=== PATIENT | male | born 1955 | race Caucasian/White ===

== ENCOUNTER 2016-05-24 15:11 | Observation (INO) ==
--- NOTE | 2016-05-24 15:44 | Emergency Department Note ---
Disposition Clinical Impression: CHF exacerbation Qualifiers: Congestive heart failure type: unspecified congestive heart failure type Qualified Code(s): I50.9 - Heart failure, unspecified CKD (chronic kidney disease) Qualifiers: Chronic kidney disease stage: stage 4 (severe) Qualified Code(s): N18.4 - Chronic kidney disease, stage 4 (severe) Disposition: Admitted As Inpatient Condition: Good SOB HPI - General Chief Complaint: ED Shortness of Breath/Dyspnea Stated Complaint: Sent by Dr. Rubin for acute CHF Time Seen by Provider: 05/24/16 15:16 Source: patient, family Mode of arrival: private vehicle Limitations: no limitations Nursing Notes Reviewed: Yes Vital Signs Reviewed: Yes - History of Present Illness 61-year-old male history of CHF, COPD, CKD who presents to the ER with a chief complaint of shortness of breath. Patient reports that he was seen by his primary care provider on Saturday. At that time she increased his Lasix from 80 mg daily to 160 mg daily. Patient reports shortness of breath for the last few years but worsened over the last 10 days. He reports a recent weight gain of 30 pounds during this time. Patient reports some worsening dyspnea on exertion. He denies any orthopnea. States he has felt a little more swollen than usual. No chest pain. Patient had imaging performed today as an outpatient and was told to come to the ER. No other complaints. Pt Subjective Complaint: shortness of breath Onset (ago): day(s) (10) Context: other (History of congestive heart failure) Consistency/Duration: gradually worsening Improves with: rest Worsens with: exertion Known history of: congestive heart failure Associated symptoms: Reports: other (shortness of breath). Denies: chest pain, fever, cough, sputum production, lower extremity pain, nausea/vomiting Treatment prior to arrival: diuretics Cough present: No Sputum production: No Sputum Amount: None - Related Data Home oxygen amount: none Home Medications Medication Instructions Recorded Confirmed Allopurinol [Zyloprim] 100 mg PO QAM 11/29/15 05/24/16 Amitriptyline [Elavil] 50 - 100 mg PO HS 11/29/15 05/24/16 Calcitriol [Rocaltrol] 0.25 mcg PO BID 11/29/15 05/24/16 Docusate Sodium [Colace] 100 mg PO QID PRN 11/29/15 05/24/16 Eletriptan HBr [Relpax] 20 mg PO AD PRN 11/29/15 05/24/16 Ergocalciferol (VITAMIN D2) 2,000 unit PO DAILY 11/29/15 05/24/16 [Vitamin D2] FLUoxetine HCl [Prozac] 40 mg PO QAM 11/29/15 05/24/16 Ferrous Sulfate 325 mg PO BID 11/29/15 05/24/16 Folic Acid 1 mg PO DAILY 11/29/15 05/24/16 Furosemide [Lasix] 80 mg PO QAM 11/29/15 05/24/16 Omeprazole 20 mg PO QPM 11/29/15 05/24/16 Simvastatin [Zocor] 20 mg PO HS 11/29/15 05/24/16 OxyCODONE ER (12 HR) [OxyCONTIN] 20 mg PO Q8HR 12/01/15 05/24/16 Cyclobenzaprine HCl 2.5 - 5 mg PO TID PRN 05/24/16 05/24/16 Pregabalin [Lyrica] 25 mg PO TID 05/24/16 05/24/16 Allergies Allergy/AdvReac Type Severity Reaction Status Date / Time pregabalin [From Lyrica] AdvReac Confusion Verified 12/01/15 12:15 tamsulosin [From Flomax] AdvReac Dizziness Verified 12/01/15 12:15 All systems ED: reviewed and negative except as stated. Constitutional: Denies: fever Cardiovascular: Reports: dyspnea on exertion. Denies: chest pain, orthopnea Respiratory: Reports: dyspnea. Denies: cough, wheezes Gastrointestinal: Denies: abdominal pain, nausea, vomiting, diarrhea Musculoskeletal: Denies: back pain, neck pain Past Medical History - Past Medical History Attestation: Yes The following information was validated with the patient. Source: patient Medical history: Reports: CHF, COPD, coronary artery disease, DVT, diabetes, GERD, hyperlipidemia, hypertension, renal disease, thyroid disease, other Surgical history: Reports: other Psychiatric history: Reports: depression - Social History Smoking Status: Former smoker Smokeless Tobacco Status: No Alcohol use: Reports: none Drug use: Reports: none Physical Exam - General Limitations: no limitations General appearance: alert, in no apparent distress - Head Head exam: atraumatic, normocephalic, normal inspection - Eye Eye exam: Present: normal appearance, EOMI - ENT ENT exam: normal exam - Neck Neck exam: Present: normal inspection, full ROM - Chest Chest inspection: Present: normal inspection, symmetric chest wall rise - Respiratory Respiratory exam: Present: other (Crackles in the bases. Otherwise clear to auscultation bilaterally.) - Cardiovascular Cardiovascular exam: Present: regular rate, normal rhythm, normal heart sounds - Abdominal Exam Abdominal exam: Present: soft, Non-Tender. Absent: tenderness - Extremities Exam Extremities exam: Present: normal inspection, full ROM - Expanded Upper Extremity Exam Shoulder exam: Present: normal inspection, full ROM Arm exam: Present: normal inspection, full ROM Elbow exam: Present: normal inspection, full ROM Forearm/Wrist exam: Present: normal inspection, full ROM Hand exam: Present: normal inspection, full ROM - Expanded Lower Extremity Exam Hip/Pelvis exam: Present: normal inspection, full ROM Upper leg exam: Present: normal inspection, full ROM Knee exam: Present: normal inspection, full ROM Lower leg exam: Present: normal inspection, full ROM, swelling (Swelling to the bilateral lower extremities.) Ankle exam: Present: normal inspection, full ROM Foot/toe exam: Present: normal inspection, full ROM - Neurological Exam Neurological exam: Present: alert - Psychiatric Psychiatric exam: Present: normal affect, normal mood - Skin Skin exam: Present: warm, dry, intact, normal color Course Course Narrative: Patient seen and examined. Vital signs reviewed. We will review the chest x- ray performed today as an outpatient. EKG, basic labs ordered. Disposition pending. - Reevaluation(s) Reevaluation #1: I discussed the results of lab work and imaging with the patient. He is agreeable with staying in the hospital and receiving IV medications. Vital Signs Temperature 97.5 F L 05/24/16 15:12 Pulse Rate 71 05/24/16 15:12 Respiratory Rate 20 05/24/16 15:12 Blood Pressure 175/74 05/24/16 15:12 O2 Sat by Pulse Oximetry 94 L 05/24/16 15:12 Temperature 97.5 F L 05/25/16 07:50 Pulse Rate 54 05/25/16 07:50 Respiratory Rate 18 05/25/16 07:50 Blood Pressure 126/74 05/25/16 07:50 O2 Sat by Pulse Oximetry 99 05/25/16 07:50 Oxygen Delivery Oxygen Delivery Room Air,Nasal Cannula Shortness of Breath/Dyspnea - MDM Narrative Medical decision making narrative: 61-year-old male presents to the ER due to shortness of breath and recent weight gain. Patient attempted to be managed outpatient with increasing his Lasix over the last 3 days. He had a chest x-ray as an outpatient today showing ulnar congestion and a right pleural effusion. He reports a 30 pound weight gain in this time. Does have a history of chronic kidney disease followed with nephrology. EKG here is a junctional rhythm unchanged from previous. Renal function is stable. Patient given 40 mg of Lasix IV here and admitted to the hospitalist service. - Lab Data Lab results reviewed: Yes I reviewed the patient's lab results. Result diagrams: 05/25/16 04:37 05/25/16 04:37 Lab Results 05/24/16 05/24/16 05/24/16 Range/Units 15:31 15:31 15:31 WBC 4.0 L (4.3-11.1) K/mcL RBC 2.92 L (4.19-5.50) M/mcL Hgb 8.6 L (12.9-16.9) g/dL Hct 27.0 L (37.5-50.1) % MCV 92.5 (83.0-100.0) fL MCH 29.5 (28.0-33.3) pg MCHC 31.9 (31.6-35.5) g/dL RDW 14.8 H (11.5-14.5) % Plt Count 140 (140-400) K/mcL MPV 10.3 (9.4-12.4) fL Immature Gran % 0.5 (0-4) % Seg Neutrophils % 78.1 % Lymphocytes % 10.8 % Monocytes % 6.0 % Eosinophils % 4.3 % Basophils % 0.3 % Neutrophils # 3.1 (1.6-8.9) K/mcL Lymphocytes # 0.4 L (0.6-4.6) K/mcL Monocytes # 0.2 (0.0-1.3) K/mcL Eosinophils # 0.2 (0.0-0.6) K/mcL Basophils # 0.0 (0.0-0.2) K/mcL PT 15.1 H (9.4-12.1) Seconds INR 1.4 APTT 30.0 (26.0-36.0) Seconds Sodium (136-145) mEq/L Potassium (3.5-4.5) mEq/L Chloride (98-109) mEq/L Carbon Dioxide (19-29) mEq/L BUN (8-26) mg/dL Creatinine (0.72-1.25) mg/dL Est GFR ( Amer) (> 60) Est GFR (Non-Af Amer) (> 60) BUN/Creatinine Ratio (6-26) Glucose (70-99) mg/dL Calculated Osmolality (280-300) Calcium (8.6-10.8) mg/dL Troponin I (0-0.03) ng/mL B-Natriuretic Peptide 268 H (0-100) pg/mL 05/24/16 05/24/16 Range/Units 15:31 15:31 WBC (4.3-11.1) K/mcL RBC (4.19-5.50) M/mcL Hgb (12.9-16.9) g/dL Hct (37.5-50.1) % MCV (83.0-100.0) fL MCH (28.0-33.3) pg MCHC (31.6-35.5) g/dL RDW (11.5-14.5) % Plt Count (140-400) K/mcL MPV (9.4-12.4) fL Immature Gran % (0-4) % Seg Neutrophils % % Lymphocytes % % Monocytes % % Eosinophils % % Basophils % % Neutrophils # (1.6-8.9) K/mcL Lymphocytes # (0.6-4.6) K/mcL Monocytes # (0.0-1.3) K/mcL Eosinophils # (0.0-0.6) K/mcL Basophils # (0.0-0.2) K/mcL PT (9.4-12.1) Seconds INR APTT (26.0-36.0) Seconds Sodium 141 (136-145) mEq/L Potassium 3.8 (3.5-4.5) mEq/L Chloride 102 (98-109) mEq/L Carbon Dioxide 28 (19-29) mEq/L BUN 37 H (8-26) mg/dL Creatinine 3.35 H (0.72-1.25) mg/dL Est GFR ( Amer) 23 L (> 60) Est GFR (Non-Af Amer) 19 L (> 60) BUN/Creatinine Ratio 11 (6-26) Glucose 117 H (70-99) mg/dL Calculated Osmolality 302 H (280-300) Calcium 9.5 (8.6-10.8) mg/dL Troponin I 0.03 (0-0.03) ng/mL B-Natriuretic Peptide (0-100) pg/mL - Radiology Data Radiology results reviewed: Yes I reviewed the patient's radiology results. - EKG Data EKG attestation: Yes I reviewed and interpreted this EKG. EKG results narrative: EKG demonstrates junctional rhythm with a rate of 61 bpm. Normal axis. QRS duration 90 QTC 408. T-wave flattening in lead 3. No ST elevations or depressions. No acute ischemic findings. No significant changes from previous EKG dated 01/18/14. Amberly - Amberly Situation: Demographics, MOA Background: Presenting Complaint, Relevant PMH, Meds, & Allergies Assessment: Vital Signs, Course and respsone to treatment, Exam Concerns, Patient/Family Expectation, Pertinant Lab Results, Outstanding Labs Recommendation: Barrier(s) to disposition, Recommendation based on pending studies, treatments, or consults S.B.Brenda Report Given to: Dr. Irving Gaming Repor Time: 17:23
--- NOTE | 2016-05-24 15:49 | Emergency Department Note ---
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 61 yo male presents with concerns of SOB worsening over the past 10 days. + 30lb weight gain over the past few weeks. PCP recently increased his Lasix at home from 80 QD to 80 BID without significant improvement of symptoms. Pt denies missing his medications. +history of CKD, creatinine today is similar to previous levels. physical exam has crackles in bilateral bases, and +1 edema in the bilateral LE. Chest x-ray today shows increased pulmonary edema and a right pleural effusion. Patient reports decrease in his ability to ambulate due to dyspnea with exertion. Patient states that this has significantly worsened over the past week. Initial ECG shows a regular rate of 61, unable to identify obvious P waves however there is no evidence for irregularity or STEMI. Patient will be admitted to the hospital for his dyspnea which is likely secondary to acute congestive heart failure.
[2016-05-24 16:00] LABS: Basophils % 0.3 %; Eosinophils # 0.2 K/mcL (0.0-0.6); Eosinophils % 4.3 %; Hemoglobin 8.6 g/dL (12.9-16.9); Immature Granulocytes % 0.5 % (0-4); Lymphocytes # 0.4 K/mcL (0.6-4.6); Lymphocytes % 10.8 %; Mean Corpuscular HGB Conc 31.9 g/dL (31.6-35.5); Mean Corpuscular Hemoglobin 29.5 pg (28.0-33.3); Mean Corpuscular Volume 92.5 fL (83.0-100.0); Mean Platelet Volume 10.3 fL (9.4-12.4); Monocytes # 0.2 K/mcL (0.0-1.3); Neutrophils # 3.1 K/mcL (1.6-8.9); Platelet Count 140 K/mcL (140-400); Red Blood Count 2.92 M/mcL (4.19-5.50); Red Cell Distribution Width 14.8 % (11.5-14.5); Segmented Neutrophils % 78.1 %
[2016-05-24 16:06] LABS: INR 1.4; Prothrombin Time 15.1 Seconds (9.4-12.1)
[2016-05-24 16:12] LABS: Calcium 9.5 mg/dL (8.6-10.8); Potassium 3.8 mEq/L (3.5-4.5)
[2016-05-24] MEDS: Furosemide 40 MG/4 ML VIAL IVP ONE (17:03)
[2016-05-24] MEDS ORDERED: Naloxone 0.4 MG/ML INJ IVP PRN (19:59)
[2016-05-24] MEDS ORDERED: Ondansetron 4 MG/2 ML VIAL IVP PRN (19:59)
[2016-05-24] MEDS ORDERED: Acetaminophen 325 MG TABLET PO PRN (19:59)
[2016-05-24] MEDS ORDERED: Eletriptan Hbr [Relpax] 20 MG PO PRN (20:04)
[2016-05-24] MEDS: Pregabalin 25 MG CAPSULE PO SCH (22:00)
[2016-05-24] MEDS: Furosemide 40 MG/4 ML VIAL IVP SCH (22:00)
--- NOTE | 2016-05-24 22:03 | Internal Med History&Physical ---
Date of Encounter: 05/24/16 Time of Encounter: 21:59 Assessment and Plan (1) CHF (congestive heart failure) Current visit: No Status: Chronic With exacerbation. No Echo for review in system, but patient reports diastolic dysfuction - IV lasix BID - Careful I/Os - Fluid restricted diet - Carefully monitor renal function - TTE in AM Qualifiers: Congestive heart failure type: diastolic Congestive heart failure chronicity: chronic Qualified Code(s): I50.32 - Chronic diastolic (congestive ) heart failure (2) Anemia Current visit: Yes Status: Acute Chronic, hemoglobin stable - Monitor H&H Qualifiers: Anemia type: unspecified type Qualified Code(s): D64.9 - Anemia, unspecified (3) Hypertension Current visit: No Status: Chronic BP stable - Continue home meds Qualifiers: Hypertension type: essential hypertension Qualified Code(s): I10 - Essential (primary) hypertension (4) CKD (chronic kidney disease) Current visit: Yes Status: Acute Creatinine at baseline - Monitor creatinine daily with diuresis Qualifiers: Chronic kidney disease stage: stage 4 (severe) Qualified Code(s): N18.4 - Chronic kidney disease, stage 4 (severe) Internal Medicine - H&P: HPI Chief complaint: Shortness of breath, weight gain Admitted From: Emergency Dept Plans for Post Hospital Care: Home History of present illness: Mr. Castrejon is a 61 year old male with history of CHF (patient reports diastolic failure), CKD stage 4 (follow with Dr. Evans), BPH, JOANNA, DVT, who presented to the ER this evening with complaint of nearly 30 pound weight gain and shortness of breath. He has been following with his PCP and increased his lasix as prescribed with initially some improvement in his weight, but now it is worsening again. His abdomen has become more distended and his legs are edematous. He notices that he is more short of breath when laying flat or with bending over. His PCP sent him for CXR today and found significant pulmonary edema and instructed him to come to the ER. He was given 40 IV lasix in the ER and admitted. He complains of left flank pain, which he states is a chronic issue and has in the past been related to kidney stones. He denies chest pain, nausea, vomiting or diarrhea. Past Med Surg Social Fam HX - Past Medical History Medical history: CHF, COPD, coronary artery disease, DVT, diabetes, GERD, hyperlipidemia, hypertension, renal disease, thyroid disease, other Psychiatric history: depression - Past Surgical History Surgical History: other - Social History Smoking Status: Former smoker Smokeless Tobacco Status: No Alcohol use: none Drug use: none - Family History Father Hx Family Respiratory Disorders: Yes (COPD) Internal Medicine - H&P: Meds Allopurinol [Zyloprim] 100 mg PO QAM 11/29/15 [History] Amitriptyline [Elavil] 50 - 100 mg PO HS 11/29/15 [History] Calcitriol [Rocaltrol] 0.25 mcg PO BID 11/29/15 [History] Docusate Sodium [Colace] 100 mg PO QID PRN 11/29/15 [History] Eletriptan HBr [Relpax] 20 mg PO AD PRN 11/29/15 [History] Ergocalciferol (VITAMIN D2) [Vitamin D2] 2,000 unit PO DAILY 11/29/15 [History] FLUoxetine HCl [Prozac] 40 mg PO QAM 11/29/15 [History] Ferrous Sulfate 325 mg PO BID 11/29/15 [History] Folic Acid 1 mg PO DAILY 11/29/15 [History] Furosemide [Lasix] 80 mg PO QAM 11/29/15 [History] Omeprazole 20 mg PO QPM 11/29/15 [History] Simvastatin [Zocor] 20 mg PO HS 11/29/15 [History] OxyCODONE ER (12 HR) [OxyCONTIN] 20 mg PO Q8HR 12/01/15 [History] Cyclobenzaprine HCl 2.5 - 5 mg PO TID PRN 05/24/16 [History] Pregabalin [Lyrica] 25 mg PO TID 05/24/16 [History] Allergies pregabalin [From Lyrica] Adverse Reaction (Verified 12/01/15 12:15) Confusion tamsulosin [From Flomax] Adverse Reaction (Verified 12/01/15 12:15) Dizziness All Systems PM: A 10-system review of systems was performed and is negative for pertinent findings except as documented above in the HPI. - Constitutional Vitals: Temp Pulse Resp BP Pulse Ox 97.7 F 54 18 144/84 100 05/24/16 21:18 05/24/16 21:18 05/24/16 21:18 05/24/16 21:18 05/24/16 21:18 General appearance: Present: A&O X 3 Exam: Patient in no acute distress, resting comfortably in bed - Head Head exam: Present: atraumatic - Eye Eye exam: Present: EOMI, sclera anicteric - ENT ENT exam: Present: mucous membranes moist - Neck Neck exam general surgery: Present: supple - Respiratory Additional comments: crackles in bilateral bases, no wheezing - Cardiovascular Cardiovascular exam: Present: RRR. Absent: diastolic murmur, gallop, rubs, systolic murmur - GI/Abdominal GI/Abdominal exam: Present: normal bowel sounds, soft. Absent: distended, tenderness - Extremities Exam Extremities exam: Present: pedal edema Additional comments: 2+ edema bilateral lower extremities - Neurological Exam Neurological exam: Present: no focal deficits - Skin Skin exam: Absent: rash Internal Med - H&P Results - Labs CBC & Chem 7: 05/24/16 15:31 05/24/16 15:31
[2016-05-24] MEDS: *HR* OxyCODONE ER (12 HR) 20 MG TABLET PO SCH (23:36)
[2016-05-25 05:31] LABS: Basophils % 0.5 %; Eosinophils # 0.2 K/mcL (0.0-0.6); Eosinophils % 5.4 %; Hematocrit 24.1 % (37.5-50.1); Hemoglobin 7.8 g/dL (12.9-16.9); Immature Granulocytes % 0.5 % (0-4); Lymphocytes # 0.6 K/mcL (0.6-4.6); Lymphocytes % 14.6 %; Mean Corpuscular HGB Conc 32.4 g/dL (31.6-35.5); Mean Corpuscular Hemoglobin 29.9 pg (28.0-33.3); Mean Corpuscular Volume 92.3 fL (83.0-100.0); Mean Platelet Volume 10.8 fL (9.4-12.4); Monocytes # 0.3 K/mcL (0.0-1.3); Monocytes % 6.7 %; Neutrophils # 2.8 K/mcL (1.6-8.9); Platelet Count 139 K/mcL (140-400); Red Blood Count 2.61 M/mcL (4.19-5.50); Red Cell Distribution Width 14.7 % (11.5-14.5); Segmented Neutrophils % 72.3 %
[2016-05-25] MEDS: *HR* Heparin 5,000 UNIT/ML VIAL SQ SCH ×2 (05:41→18:17)
[2016-05-25 05:44] LABS: Calcium 9.3 mg/dL (8.6-10.8); Potassium 3.5 mEq/L (3.5-4.5)
[2016-05-25] MEDS: Cholecalciferol (D-3) 1,000 UNIT TABLET PO SCH (08:10)
[2016-05-25] MEDS: Folic Acid 1 MG TABLET PO SCH (08:11)
[2016-05-25] MEDS: Furosemide 40 MG/4 ML VIAL IVP SCH ×2 (08:11→18:17)
[2016-05-25] MEDS: Pregabalin 25 MG CAPSULE PO SCH ×3 (08:11→20:52)
[2016-05-25] MEDS: FLUoxetine 20 MG CAPSULE PO SCH (08:11)
[2016-05-25] MEDS: *HR* OxyCODONE ER (12 HR) 20 MG TABLET PO SCH ×3 (08:11→23:59)
--- NOTE | 2016-05-25 09:10 | Electrocardiograph Report ---
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
[2016-05-25] MEDS ORDERED: SUMAtriptan succinate 25 MG TABLET PO PRN (10:25)
--- NOTE | 2016-05-25 12:41 | ECHO - Doppler Report ---
Echocardiogram Name: Maurice Castrejon Date of Study: 05/25/2016 Date: 1955 Ht: 69.0 in Medical Record#: [id number] Age: 61 Wt: 224.0 lb Gender: Male BSA: 2.17 Order #: [id number] Location: [facility] Room #: 2A26 Reading Physician: Zuhair Hinojosa MD, [facility] And [employer] Of Hearing Teacher: Benji Theodore RN Ordering Physician: Talya Cool MD Primary Physician: Vinay Rubin DO Indications: Congestive heart failure Impressions: Normal LV systolic function, LVEF 65%. Moderate left ventricular diastolic dysfunction. Normal right ventricular size and function. Mildly dilated left atrium. No significant valvular dysfunction. Mild pulmonary hypertension. Estimated RVSP = 37 mmHg. Left Ventricular Wall Motion: Rest Echo Findings All wall segments showed normal motion. Findings: Study Quality * Technically adequate exam. ECG Findings * Sinus bradycardia. Left Ventricle * Normal LV systolic function, LVEF 65%. * Normal LV chamber size and wall thickness. * Moderate left ventricular diastolic dysfunction. Right Ventricle * Normal right ventricular size and function. Left Atrium * Mildly dilated left atrium. Right Atrium * Normal right atrial size. Interatrial Septum * Lipomatous interatrial septum. Aorta * Normally sized aortic root. Pericardium * There is no pericardial effusion present. IVC * The IVC is mildly dilated. Aortic Valve * Trileaflet aortic valve. * Mildly sclerotic aortic valve leaflets. * No aortic stenosis. * No aortic regurgitation. Mitral Valve * Normal mitral valve structure. * No mitral stenosis. * Trace mitral regurgitation. Tricuspid Valve * Normal tricuspid valve structure. * No tricuspid stenosis. * Trace tricuspid regurgitation. * Mild pulmonary hypertension. Estimated RVSP = 37 mmHg. Pulmonic Valve * Normal pulmonic valve structure. * No pulmonic stenosis. * Trace pulmonic regurgitation. History Hypercholesteremia Years 20 Packs 0.5 Family History of CAD 02/27/2011 a Previous Echo was performed. Measurements: BP: 126/ 74 2D Normal Values RVIDd: 3.90 cm IVSd: 1.00 cm 0.6 - 1.0 cm LVIDd: 4.80 cm 3.7 - 5.6 cm LVPWd: 1.00 cm 0.6 - 1.1 cm LVIDs: 3.30 cm 1.5 - 3.6 cm AO: 3.80 cm < 4.0 cm %FS: 31.30 cm >25 % LA volume: 82 Mitral Valve Peak E:1.14 m/sec Peak A:.90 m/sec E/A Ratio:1.3 Tricuspid Valve TV Regurg Peak Grad: 29.00mmHg TV Regurg Peak Dez: 2.70m/sec Updated by Zuhair Hinojosa MD, [facility] on 05/25/2016 12:35:56 PM electronically signed on 05/25/2016 12:36:23 PM with status of Final Wall Motion [place]: 1=Normal, 2=Hypokinesis, 3=Akinesis, 4=Dyskinesis, 5=Aneurysmal, 6=Hyperkinetic, X=Not Visualized (Blank)=Missing
--- NOTE | 2016-05-25 16:45 | Internal Med Progress Note ---
Date of Encounter: 05/25/16 Time of Encounter: 16:42 - Assessment and plan (1) CHF (congestive heart failure) Current Visit: No Status: Chronic Assessment and plan: h/o CHF, diastolic. ECHO today shows moderate DD with preserved EF. 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 he has worsening CKD, will consult cardio for medication adjustment. will continue IV lasix for now, will cut down to 40 IV bid for now as he is not in any respiratory distress and his renal fxn is deteriorating. will start asa, and continue statin Qualifiers: Congestive heart failure type: diastolic Congestive heart failure chronicity: chronic Qualified Code(s): I50.32 - Chronic diastolic (congestive ) heart failure (2) COPD (chronic obstructive pulmonary disease) Current Visit: No Status: Chronic Assessment and plan: stable. He says he does not use any rescue inhalers, does not smoke, not on home oxygen. Will add albuterol inhaler when necessary for now, oxygen to maintain saturation above 88-92%. Qualifiers: COPD type: chronic bronchitis Chronic bronchitis type: unspecified Qualified Code(s): J42 - Unspecified chronic bronchitis (3) Hypertension Current Visit: No Status: Chronic Assessment and plan: Controlled. Qualifiers: Hypertension type: essential hypertension Qualified Code(s): I10 - Essential (primary) hypertension (4) CKD (chronic kidney disease) stage 4, GFR 15-29 ml/min Current Visit: No Status: Chronic Assessment and plan: Reason creatinine around 2.4/2.3/2.6 last year. Mild increase in creatinine from baseline at this time to 3.23. This could be secondary to worsening diastolic heart failure. May benefit from low-dose JING inhibitor once kidney function stabilizes. (5) Diabetes mellitus Current Visit: No Status: Chronic Qualifiers: Diabetes mellitus type: type 2 Diabetes mellitus complication status: with unspecified complications Diabetes mellitus skilled nursing insulin use: without skilled nursing use Qualified Code(s): E11.8 - Type 2 diabetes mellitus with unspecified complications (6) Anemia Current Visit: Yes Status: Acute Assessment and plan: denies hematemesis or luba. possible anemia of chronic disease. iron panel done recently shows iron deficiency anemia. on ferrous sulfate. may need follow up with renal for EPO initiation. will recheck cbc tomm, if further drop, will transfuse 1 unit prbc. Qualifiers: Anemia type: unspecified type Qualified Code(s): D64.9 - Anemia, unspecified - Time Spent With Patient 25 - 35 minutes - Subjective Interval history: Patient seen at the bedside. Reports that he feels much better than yesterday. Breathing is much better. He says he was diagnosed with mild congestive heart failure 7-8 years ago, since then he is on oral Lasix at home. However recently he has gained weight and his PCP doubled his Lasix dose however he started having sob and weight gain. - Constitutional Vitals: Temp Pulse Resp BP Pulse Ox 97.2 F L 60 22 139/92 97 05/25/16 11:50 05/25/16 11:50 05/25/16 11:50 05/25/16 11:50 05/25/16 11:50 General appearance: Present: A&O X 3 Exam: Exam: Patient in no acute distress, resting comfortably in bed - Head Head exam: Present: atraumatic - Eye Eye exam: Present: EOMI, sclera anicteric - ENT ENT exam: Present: mucous membranes moist - Neck Neck exam general surgery: Present: supple - Respiratory mild creptns in rt. basal region, no wheezing - Cardiovascular Cardiovascular exam: Present: RRR. Absent: diastolic murmur, gallop, rubs, systolic murmur - GI/Abdominal GI/Abdominal exam: Present: normal bowel sounds, soft, mild distension, ?free fluid Absent: distended, tenderness - Extremities Exam Extremities exam: Present: no edema Internal Medicine: Result - Labs CBC & Chem 7: 05/25/16 04:37 05/25/16 04:37 Labs: Short CBC 05/25/16 Range/Units 04:37 WBC 3.9 L (4.3-11.1) K/mcL Hgb 7.8 L (12.9-16.9) g/dL Hct 24.1 L (37.5-50.1) % Plt Count 139 L (140-400) K/mcL Neutrophils # 2.8 (1.6-8.9) K/mcL BMP 05/25/16 04:37 Sodium 140 Potassium 3.5 Chloride 102 Carbon Dioxide 30 H BUN 35 H Creatinine 3.23 H Glucose 98 Calcium 9.3 - ABG Interpretation ABG results: PT/INR, D-dimer PT 15.1 Seconds (9.4-12.1) H 05/24/16 15:31 Consult Discharge Plan - Plan Referrals: Vinay Rubin DO [Primary Care Provider] - (Web request made 05/24/16)
[2016-05-26] MEDS: *HR* Heparin 5,000 UNIT/ML VIAL SQ SCH ×2 (05:30→17:03)
[2016-05-26 06:19] LABS: Basophils % 0.6 %; Eosinophils # 0.2 K/mcL (0.0-0.6); Hematocrit 26.1 % (37.5-50.1); Hemoglobin 8.2 g/dL (12.9-16.9); Immature Granulocytes % 0.3 % (0-4); Lymphocytes # 0.6 K/mcL (0.6-4.6); Lymphocytes % 17.9 %; Mean Corpuscular HGB Conc 31.4 g/dL (31.6-35.5); Mean Corpuscular Hemoglobin 29.6 pg (28.0-33.3); Mean Corpuscular Volume 94.2 fL (83.0-100.0); Mean Platelet Volume 10.4 fL (9.4-12.4); Monocytes # 0.2 K/mcL (0.0-1.3); Monocytes % 7.2 %; Neutrophils # 2.3 K/mcL (1.6-8.9); Platelet Count 143 K/mcL (140-400); Red Blood Count 2.77 M/mcL (4.19-5.50); Red Cell Distribution Width 14.7 % (11.5-14.5)
[2016-05-26 06:43] LABS: Calcium 9.6 mg/dL (8.6-10.8); Potassium 3.8 mEq/L (3.5-4.5)
[2016-05-26] MEDS: Cholecalciferol (D-3) 1,000 UNIT TABLET PO SCH (08:25)
[2016-05-26] MEDS: Pregabalin 25 MG CAPSULE PO SCH ×3 (08:25→21:12)
[2016-05-26] MEDS: *HR* OxyCODONE ER (12 HR) 20 MG TABLET PO SCH ×3 (08:25→23:50)
[2016-05-26] MEDS: Folic Acid 1 MG TABLET PO SCH (08:25)
[2016-05-26] MEDS: FLUoxetine 20 MG CAPSULE PO SCH (08:25)
[2016-05-26] MEDS: Furosemide 40 MG/4 ML VIAL IVP SCH ×2 (10:42→17:03)
--- NOTE | 2016-05-26 11:10 | Cardiology Consult Note ---
<Troy Ybarra - Last Filed: 05/26/16 12:11> Date of Encounter: 05/26/16 Time of Encounter: 10:30 Assessment and Plan (1) Acute on chronic renal failure Current Visit: Yes Status: Acute Per cardiology: -Known CKD. -Creatinine January 2016 2.82. -Creatinine on admission 3.4. -Follows with -Recommend nephrology C/S. (SHANNAN) (2) Chronic diastolic (congestive) heart failure Current Visit: Yes Status: Acute Per cardiology: -Known diastolic heart failure per patient. -Echo 05/25/16 with LVEF 65%, moderate left ventricular diastolic dysfunction, mildly dilated left atrium, no significant valvular dysfunction, mild pulmonary hypertension, all wall segments with normal motion. -On lasix 40mg IV BID per primary service. -Euvolemic on exam. -Patient's weight in 2015 223lbs, weight today 216.7 lbs. -Unable to add beta see due to bradycardia. Average HR 54. -Unable to add mer inhibitor due to worsening kidney function. -Unable to add asa due to anemia. -BNP only 268. Patient with known moderate diastolic dysfunction on current echo. Suspect pulmonary edema/volume overload d/t worsening kidney function. Cardiology will sign off. Cardiology will follow in outpatient setting. Follow up set. Re-consult as needed. Again recommend nephrology consult and consider discontinuation of IV Lasix per their recommendations. (SHANNAN). (3) Anemia Current Visit: Yes Status: Chronic Per cardiology: -Known history of chronic anemia. -Management per primary service. (SHANNAN) Qualifiers: Anemia type: unspecified type Qualified Code(s): D64.9 - Anemia, unspecified Discussion w patient/family: The assessment and plan as outlined above was discussed with the patient who expressed understanding and agreement. All questions were answered. Thank you for involving us in the care of your patient. Please call with any questions. Patient seen and examined with EUNICE Coppola Discussed and reviewed with . History of Present Illness Consult date: 05/25/16 Requesting physician: Augustus Mendoza Consult reason: diastolic CHF Chief complaint: weight gain History of present illness: Mr. Castrejon is a 61 year old male with a relevant past medical history of ROMANA, hyperlipidemia, CHF, COPD, Sleep apnea, Smoking history, DVT, shortness of breath, thrombocytopenia, depression, DM, anemia, sleep apnea. Patient states he had been seeing his PCP and she was titrating his lasix due to recent weight gain. PCP was concerned and ordered chest x-ray. Chest x-ray was abnormal so he was recommended to come to ER by PCP office. Patient states his weight is up about 30 pounds. Patient states increased shortness of breath on admission. States shortness of breath is better today. Denies chest pain or increased fatigue. (SHANNAN) Past Med Surg Social Fam HX - Past Medical History Attestation: Yes The following information was validated with the patient. Source: patient, old records reviewed Medical history: CHF, COPD, coronary artery disease, DVT, diabetes, GERD, hyperlipidemia, hypertension, renal disease, thyroid disease, other Psychiatric history: depression - Past Surgical History Surgical History: other - Social History Smoking Status: Former smoker Smokeless Tobacco Status: No Alcohol use: none Drug use: none - Family History Father Hx Family Respiratory Disorders: Yes (COPD) Medications and Allergies Allopurinol [Zyloprim] 100 mg PO QAM 11/29/15 [History] Amitriptyline [Elavil] 50 - 100 mg PO HS 11/29/15 [History] Calcitriol [Rocaltrol] 0.25 mcg PO BID 11/29/15 [History] Docusate Sodium [Colace] 100 mg PO QID PRN 11/29/15 [History] Eletriptan HBr [Relpax] 20 mg PO AD PRN 11/29/15 [History] Ergocalciferol (VITAMIN D2) [Vitamin D2] 2,000 unit PO DAILY 11/29/15 [History] FLUoxetine HCl [Prozac] 40 mg PO QAM 11/29/15 [History] Ferrous Sulfate 325 mg PO BID 11/29/15 [History] Folic Acid 1 mg PO DAILY 11/29/15 [History] Furosemide [Lasix] 80 mg PO QAM 11/29/15 [History] Omeprazole 20 mg PO QPM 11/29/15 [History] Simvastatin [Zocor] 20 mg PO HS 11/29/15 [History] OxyCODONE ER (12 HR) [OxyCONTIN] 20 mg PO Q8HR 12/01/15 [History] Cyclobenzaprine HCl 2.5 - 5 mg PO TID PRN 05/24/16 [History] Pregabalin [Lyrica] 25 mg PO TID 05/24/16 [History] Allergies pregabalin [From Lyrica] Adverse Reaction (Verified 12/01/15 12:15) Confusion tamsulosin [From Flomax] Adverse Reaction (Verified 12/01/15 12:15) Dizziness All Systems Review: A 10-system review of systems was performed and is negative for pertinent findings except as documented above in the HPI. - Constitutional Constitutional: weight gain - Cardiovascular Cardiovascular: as per HPI, dyspnea on exertion Physical Examination Vital Signs, Last 4 Hours Temp Pulse Resp BP Pulse Ox 05/26/16 10:58 97.9 F 50 48 136/75 99 General: Conversant, No Apparent Distress HEENT: Atraumatic, Normocephaly, Mucus Membranes Moist Neck: No JVD, Normal carotid pulses Cardiac: Reg Rate and Rhythm, Normal S1 and S2, No Murmur Lungs: Normal Breath Sounds, No Wheeze, Rales, Rhonchi Neuro: Alert and responsive, No focal deficits noted Abdomen: Soft, Non-Tender Skin: No rashes noted on visualized skin Musculoskeletal: No Chest Wall Tenderness Extremities: No Clubbing, No Cyanosis, No Edema, Normal Pulses, Other ( Bilateral lower extremities with miguel appearance. ) Results 05/26/16 05:36 05/26/16 05:36 Lab Results Active Medications Acetaminophen (Tylenol) 650 mg PO Q6HR PRN PRN Reason: Mild Pain (1-3) Stop: 11/23/16 20:00 Allopurinol (Zyloprim) 100 mg PO QAM LINDSEY Stop: 11/24/16 09:01 Last Admin: 05/26/16 08:25 Dose: 100 mg Amitriptyline HCl (Elavil) 50 mg PO HS LINDSEY Stop: 11/23/16 21:01 Last Admin: 05/25/16 20:52 Dose: 50 mg Calcitriol (Rocaltrol) 0.25 mcg PO BID LINDSEY Stop: 11/23/16 21:01 Last Admin: 05/26/16 08:25 Dose: 0.25 mcg Cyclobenzaprine HCl (Flexeril) 5 mg PO TID PRN PRN Reason: Muscle Spasm Docusate Sodium (Colace) 100 mg PO QID PRN; Protocol PRN Reason: Constipation Stop: 11/23/16 20:05 Ferrous Sulfate (Ferrous Sulfate) 325 mg PO BIDWM [facility] Stop: 11/24/16 17:01 Last Admin: 05/26/16 08:25 Dose: 325 mg Fluoxetine HCl (Prozac) 40 mg PO QAM [facility] Stop: 11/24/16 09:01 Last Admin: 05/26/16 08:25 Dose: 40 mg Folic Acid (Folic Acid) 1 mg PO DAILY LINDSEY Stop: 11/24/16 09:01 Last Admin: 05/26/16 08:25 Dose: 1 mg Furosemide (Lasix) 40 mg IVP BIDDIURETIC [facility] Stop: 11/24/16 17:31 Last Admin: 05/26/16 10:42 Dose: 40 mg Heparin Sodium (Porcine) (Heparin) 5,000 unit SQ Q12HCO [facility] Stop: 11/24/16 06:01 Last Admin: 05/26/16 05:30 Dose: 5,000 unit Naloxone HCl (Narcan) 0.4 mg IVP Q2MIN PRN PRN Reason: Opioid Reversal Stop: 11/23/16 20:00 Omeprazole (Prilosec) 20 mg PO QPM [facility] Stop: 11/24/16 18:01 Last Admin: 05/25/16 18:17 Dose: 20 mg Ondansetron HCl (Zofran) 4 mg IVP Q8HR PRN PRN Reason: Nausea And Vomiting Stop: 11/23/16 20:00 Oxycodone HCl (Oxycontin) 20 mg PO Q8HR [facility] Stop: 11/24/16 00:01 Last Admin: 05/26/16 08:25 Dose: 20 mg Pregabalin (Lyrica) 25 mg PO TID [facility] Stop: 11/23/16 21:01 Last Admin: 05/26/16 08:25 Dose: 25 mg Simvastatin (Zocor) 20 mg PO HS LINDSEY PRN Reason: Protocol Stop: 11/23/16 21:01 Last Admin: 05/25/16 20:52 Dose: 20 mg Sumatriptan Succinate (Imitrex) 25 mg PO Q2H PRN PRN Reason: Migraine Headache Stop: 11/24/16 10:26 Vitamin D (Vitamin D) 2,000 unit PO DAILY [facility] Stop: 11/24/16 09:01 Last Admin: 05/26/16 08:25 Dose: 2,000 unit - Imaging and Cardiology Chest Xray: report reviewed Echo: report reviewed - EKG Interpretation EKG results cardiology: personally reviewed (ECG with sinus rhythm at 61. Unchanged from previous ECG.), other (Telemetry reviewed with average HR 54, occasional PVCs and PACs noted.) Consult Discharge Plan - Plan Referrals: Vinay Rubin W, DO [Primary Care Provider] - (Web request made 05/24/16) <Lotus Headley - Last Filed: 05/26/16 14:07> Date of Encounter: 05/26/16 Assessment and Plan Discussion w patient/family: The assessment and plan as outlined above was discussed with the patient and/or family members who expressed understanding and agreement. All questions were answered. Thank you for involving us in the care of your patient. Please call with any questions. History of Present Illness History of present illness: Mr. Castrejon is a 61 year old male All Systems Review: A 10-system review of systems was performed and is negative for pertinent findings except as documented above in the HPI. Physical Examination Vital Signs, Last 4 Hours Temp Pulse Resp BP Pulse Ox 05/26/16 10:58 97.9 F 48 18 136/75 99 Results 05/26/16 05:36 05/26/16 05:36 Lab Results 05/26/16 05/26/16 05:36 05:36 WBC 3.4 L Hgb 8.2 L Hct 26.1 L Plt Count 143 Sodium 143 Potassium 3.8 Chloride 102 Carbon Dioxide 29 BUN 36 H Creatinine 3.20 H Glucose 80 Calcium 9.6 - Attending Attestation I examined this patient and my medical decision-making was reviewed with the RAKING MACHINE OPERATOR/PA/Advanced Practice Nurse/Resident Physician. I agree with the documented findings, disposition and treatment plan. Mr. Castrejon describes chronic SOB that became worse possibly over the past few weeks. Noted, is worsening of kidney function on presentation as well as mild worsening of his anemia with Hgb 7.8. Worsening SOB appears to be multifactorial and in part related to ARF on CKD and worsening anemia. CXR also suggests possibility of developing pneumonia. BNP is not suggestive of heart failure and there is only a small right pleural effusion on CXR. Also, recent increase in lasix has caused a decline in renal function suggesting that presenting symptoms are not from diastolic heart failure exacerbation. We recommend having Nephrology see the patient and consider a pulmonary evaluation. He does report being diagnosed with COPD a long time ago but is not on inhalers. Otherwise, he also has periods of pancytopenia that may need further exploration. No further recommendations from a cardiac standpoint. Diuresis per primary team. We will sign off. Please call with questions.
--- NOTE | 2016-05-26 16:05 | Internal Med Progress Note ---
Date of Encounter: 05/26/16 Time of Encounter: 16:03 - Assessment and plan (1) CHF (congestive heart failure) Current Visit: No Status: Chronic Assessment and plan: h/o CHF, diastolic. ECHO today shows moderate DD with preserved EF. he does not follow with a rnp and is not on BB or ACE_I HE says he takes 80mg of lasix daily. he has worsening CKD, cardio was consulted. will continue IV lasix for now, will continue 40 IV bid for now as he is not in any respiratory distress and his renal fxn is deteriorating. Unable to add beta see due to bradycardia. Average HR 54. -Unable to add mer inhibitor due to worsening kidney function. -Unable to add asa due to anemia as per cardio Qualifiers: Congestive heart failure type: diastolic Congestive heart failure chronicity: chronic Qualified Code(s): I50.32 - Chronic diastolic (congestive ) heart failure (2) COPD (chronic obstructive pulmonary disease) Current Visit: No Status: Chronic Assessment and plan: stable. He says he does not use any rescue inhalers, does not smoke, not on home oxygen. Will add albuterol inhaler when necessary for now, oxygen to maintain saturation above 88-92%. Qualifiers: COPD type: chronic bronchitis Chronic bronchitis type: unspecified Qualified Code(s): J42 - Unspecified chronic bronchitis (3) Hypertension Current Visit: No Status: Chronic Assessment and plan: Controlled. Qualifiers: Hypertension type: essential hypertension Qualified Code(s): I10 - Essential (primary) hypertension (4) CKD (chronic kidney disease) stage 4, GFR 15-29 ml/min Current Visit: No Status: Chronic Assessment and plan: Reason creatinine around 2.4/2.3/2.6 last year. Mild increase in creatinine from baseline at this time to 3.23. will repeat chem tomm, if not improving will consult renal for any further recx. US kidneys show no hydronephrosis or any acute pathology. (5) Diabetes mellitus Current Visit: No Status: Chronic Qualifiers: Diabetes mellitus type: type 2 Diabetes mellitus complication status: with unspecified complications Diabetes mellitus terminal operations manager insulin use: without retirement use Qualified Code(s): E11.8 - Type 2 diabetes mellitus with unspecified complications (6) Anemia Current Visit: Yes Status: Chronic Assessment and plan: denies hematemesis or luba. possible anemia of chronic disease. iron panel done recently shows iron deficiency anemia. on ferrous sulfate. may need follow up with renal for EPO initiation. Qualifiers: Anemia type: unspecified type Qualified Code(s): D64.9 - Anemia, unspecified - Time Spent With Patient 25 - 35 minutes - Subjective Interval history: Patient seen at the bedside. Reports that he feels much better than yesterday. Breathing is much better. He says he was diagnosed with mild congestive heart failure 7-8 years ago, since then he is on oral Lasix at home. However recently he has gained weight and his PCP doubled his Lasix dose however he started having sob and weight gain. - Constitutional Vitals: Temp Pulse Resp BP Pulse Ox 97.9 F 48 18 136/75 99 05/26/16 10:58 05/26/16 10:58 05/26/16 10:58 05/26/16 10:58 05/26/16 10:58 General appearance: Present: A&O X 3 Exam: Exam: Patient in no acute distress, resting comfortably in bed - Head Head exam: Present: atraumatic - Eye Eye exam: Present: EOMI, sclera anicteric - ENT ENT exam: Present: mucous membranes moist - Neck Neck exam general surgery: Present: supple - Respiratory mild creptns in rt. basal region, no wheezing - Cardiovascular Cardiovascular exam: Present: RRR. Absent: diastolic murmur, gallop, rubs, systolic murmur - GI/Abdominal GI/Abdominal exam: Present: normal bowel sounds, soft, mild distension, ?free fluid Absent: distended, tenderness - Extremities Exam Extremities exam: Present: no edema Internal Medicine: Result - Labs CBC & Chem 7: 05/26/16 05:36 05/26/16 05:36 Labs: Short CBC 05/26/16 Range/Units 05:36 WBC 3.4 L (4.3-11.1) K/mcL Hgb 8.2 L (12.9-16.9) g/dL Hct 26.1 L (37.5-50.1) % Plt Count 143 (140-400) K/mcL Neutrophils # 2.3 (1.6-8.9) K/mcL BMP 05/26/16 05:36 Sodium 143 Potassium 3.8 Chloride 102 Carbon Dioxide 29 BUN 36 H Creatinine 3.20 H Glucose 80 Calcium 9.6 - ABG Interpretation ABG results: PT/INR, D-dimer PT 15.1 Seconds (9.4-12.1) H 05/24/16 15:31 - Impressions Impressions Retroperitoneum Ultrasound 05/26/16 09:30 IMPRESSION: 1. Significant postvoid residual volume. D/ / Jamison Bal MD / Jamison Bal MD Interpreting Provider: Jamison Bal MD Consult Discharge Plan - Plan Referrals: Vinay Rubin DO [Primary Care Provider] - (Web request made 05/24/16)
[2016-05-27] MEDS: *HR* Heparin 5,000 UNIT/ML VIAL SQ SCH (05:11)
[2016-05-27 08:23] LABS: Basophils % 0.3 %; Eosinophils # 0.2 K/mcL (0.0-0.6); Hematocrit 24.5 % (37.5-50.1); Hemoglobin 8.1 g/dL (12.9-16.9); Immature Granulocytes % 0.3 % (0-4); Lymphocytes # 0.7 K/mcL (0.6-4.6); Lymphocytes % 16.6 %; Mean Corpuscular HGB Conc 33.1 g/dL (31.6-35.5); Mean Corpuscular Hemoglobin 30.2 pg (28.0-33.3); Mean Corpuscular Volume 91.4 fL (83.0-100.0); Mean Platelet Volume 10.9 fL (9.4-12.4); Monocytes # 0.3 K/mcL (0.0-1.3); Neutrophils # 2.8 K/mcL (1.6-8.9); Platelet Count 139 K/mcL (140-400); Red Blood Count 2.68 M/mcL (4.19-5.50); Red Cell Distribution Width 14.9 % (11.5-14.5); Segmented Neutrophils % 70.8 %
[2016-05-27] MEDS: Furosemide 40 MG/4 ML VIAL IVP SCH ×2 (08:36→16:01)
[2016-05-27] MEDS: *HR* OxyCODONE ER (12 HR) 20 MG TABLET PO SCH ×2 (08:36→16:01)
[2016-05-27] MEDS: Folic Acid 1 MG TABLET PO SCH (08:36)
[2016-05-27] MEDS: Pregabalin 25 MG CAPSULE PO SCH ×2 (08:36→16:01)
[2016-05-27] MEDS: Cholecalciferol (D-3) 1,000 UNIT TABLET PO SCH (08:36)
[2016-05-27] MEDS: FLUoxetine 20 MG CAPSULE PO SCH (08:36)
[2016-05-27 08:39] LABS: Calcium 9.5 mg/dL (8.6-10.8); Potassium 3.4 mEq/L (3.5-4.5)
--- NOTE | 2016-05-27 12:12 | Internal Med Progress Note ---
Date of Encounter: 05/27/16 Time of Encounter: 12:09 - Assessment and plan (1) CHF (congestive heart failure) Current Visit: No Status: Chronic Assessment and plan: h/o CHF, diastolic. ECHO shows moderate DD with preserved EF. HE says he takes 80mg of lasix daily. he has worsening CKD, cardio was consulted. will continue IV lasix for now, will continue 40 IV bid for now as he is not in any respiratory distress and his renal fxn is deteriorating. Unable to add beta see due to bradycardia. Average HR 54. -Unable to add mer inhibitor due to worsening kidney function. -Unable to add asa due to anemia as per cardio Qualifiers: Congestive heart failure type: diastolic Congestive heart failure chronicity: chronic Qualified Code(s): I50.32 - Chronic diastolic (congestive ) heart failure (2) COPD (chronic obstructive pulmonary disease) Current Visit: No Status: Chronic Assessment and plan: stable. He says he does not use any rescue inhalers, does not smoke, not on home oxygen. Will add albuterol inhaler when necessary for now, oxygen to maintain saturation above 88-92%. Qualifiers: COPD type: chronic bronchitis Chronic bronchitis type: unspecified Qualified Code(s): J42 - Unspecified chronic bronchitis (3) Hypertension Current Visit: No Status: Chronic Assessment and plan: Controlled. Qualifiers: Hypertension type: essential hypertension Qualified Code(s): I10 - Essential (primary) hypertension (4) CKD (chronic kidney disease) stage 4, GFR 15-29 ml/min Current Visit: No Status: Chronic Assessment and plan: baseline creatinine around 2.4/2.3/2.6 last year. Mild increase in creatinine from baseline at this time to 3.23, has remained stable. renal has been consulted by cardio, will follow recommendation. US kidneys show no hydronephrosis but has large post void residue. will place reyes catheter today (5) Diabetes mellitus Current Visit: No Status: Chronic Qualifiers: Diabetes mellitus type: type 2 Diabetes mellitus complication status: with unspecified complications Diabetes mellitus oil heaterman insulin use: without snf use Qualified Code(s): E11.8 - Type 2 diabetes mellitus with unspecified complications (6) Anemia Current Visit: Yes Status: Chronic Assessment and plan: denies hematemesis or luba. possible anemia of chronic disease. iron panel done recently shows iron deficiency anemia. on ferrous sulfate. may need follow up with renal for EPO initiation. Qualifiers: Anemia type: unspecified type Qualified Code(s): D64.9 - Anemia, unspecified - Time Spent With Patient 25 - 35 minutes - Subjective Interval history: Patient seen at the bedside. Reports that he feels much better , denies any complains. Breathing is much better. He says he was diagnosed with mild congestive heart failure 7-8 years ago, since then he is on oral Lasix at home. However recently he has gained weight and his PCP doubled his Lasix dose however he started having sob and weight gain. - Constitutional Vitals: Temp Pulse Resp BP Pulse Ox 98.2 F 61 14 155/78 95 05/27/16 11:36 05/27/16 11:36 05/27/16 11:36 05/27/16 11:36 05/27/16 11:36 General appearance: Present: A&O X 3 Exam: Exam: Patient in no acute distress, resting comfortably in bed - Head Head exam: Present: atraumatic - Eye Eye exam: Present: EOMI, sclera anicteric - ENT ENT exam: Present: mucous membranes moist - Neck Neck exam general surgery: Present: supple - Respiratory mild creptns in rt. basal region, no wheezing - Cardiovascular Cardiovascular exam: Present: RRR. Absent: diastolic murmur, gallop, rubs, systolic murmur - GI/Abdominal GI/Abdominal exam: Present: normal bowel sounds, soft, mild distension, ?free fluid Absent: distended, tenderness - Extremities Exam Extremities exam: Present: no edema Internal Medicine: Result - Labs CBC & Chem 7: 05/27/16 07:50 05/27/16 07:50 Labs: Short CBC 05/27/16 Range/Units 07:50 WBC 4.0 L (4.3-11.1) K/mcL Hgb 8.1 L (12.9-16.9) g/dL Hct 24.5 L (37.5-50.1) % Plt Count 139 L (140-400) K/mcL Neutrophils # 2.8 (1.6-8.9) K/mcL BMP 05/27/16 07:50 Sodium 141 Potassium 3.4 L Chloride 101 Carbon Dioxide 27 BUN 36 H Creatinine 3.19 H Glucose 90 Calcium 9.5 - ABG Interpretation ABG results: PT/INR, D-dimer PT 15.1 Seconds (9.4-12.1) H 05/24/16 15:31 Consult Discharge Plan - Plan Referrals: Vinay Rubin DO [Primary Care Provider] - (Web request made 05/24/16)
--- NOTE | 2016-05-27 13:55 | Nephrology Consult Note ---
Date of Encounter: 05/27/16 Time of Encounter: 13:00 Assessment and Plan (1) Chronic diastolic (congestive) heart failure Current Visit: Yes Status: Acute Seems to have resolved, can switch back to po lasix 40mg bid Low sodium diet advised Fluid restriction at 1.5liters a day advised No ACEi due to poor renal function (2) Anemia Current Visit: Yes Status: Chronic Hgb noted lower than baseline despite po iron supplements. He does have a known history of iron deficiency Will dose with iv iron; feraheme today Qualifiers: Anemia type: unspecified type Qualified Code(s): D64.9 - Anemia, unspecified (3) CKD (chronic kidney disease) stage 4, GFR 15-29 ml/min Current Visit: No Status: Chronic SCr worse than previous baseline but no acute indication for AT RISK [employer]AP[employer]OFESSION[employer] at this time but modalities dicussed at length and ill continue on outpatinet at next apt this month in 2 weeks. Continue calcitriol for HPTH Continue vitamin D supplements as well (4) Urinary retention due to benign prostatic hyperplasia Current Visit: Yes Status: Acute Ok to discontinue reyes today. Pt does not want to go home with this. he want to resume flomax which is reasonable, will restart History of Present Illness - Reason for Consult Consult date: 05/27/16 Acute Kidney Injury, Chronic Kidney Disease Requesting physician: Troy Ybarra - History of Present Illness 61 y o male with PMH of diastolic CHF, BPH, JOANNA and stage 4 CKD well known to me from outpatient management admitted with worsening SOB. He was diagnosed with CHF exacerbation and diuresed. renal consulted as his renal functin has worsened since last visit with me in january from 2.8, GFR 23 to 3.2, GFR 19. US of kidney showed some urinary retention off flomax previously used with reyes placed. He denies any urinary sxs at present. Pt seen and examined with at [facility]. He reports feeling much better and wants to go home today. Past Med Surg Social Fam HX - Past Medical History Medical history: CHF, COPD, coronary artery disease, DVT, diabetes, GERD, hyperlipidemia, hypertension, renal disease, thyroid disease, other Psychiatric history: depression - Past Surgical History Surgical History: other - Social History Smoking Status: Former smoker Smokeless Tobacco Status: No Alcohol use: none Drug use: none - Family History Father Hx Family Respiratory Disorders: Yes (COPD) Medications and Allergies Allopurinol [Zyloprim] 100 mg PO QAM 11/29/15 [History] Amitriptyline [Elavil] 50 - 100 mg PO HS 11/29/15 [History] Calcitriol [Rocaltrol] 0.25 mcg PO BID 11/29/15 [History] Docusate Sodium [Colace] 100 mg PO QID PRN 11/29/15 [History] Eletriptan HBr [Relpax] 20 mg PO AD PRN 11/29/15 [History] Ergocalciferol (VITAMIN D2) [Vitamin D2] 2,000 unit PO DAILY 11/29/15 [History] FLUoxetine HCl [Prozac] 40 mg PO QAM 11/29/15 [History] Ferrous Sulfate 325 mg PO BID 11/29/15 [History] Folic Acid 1 mg PO DAILY 11/29/15 [History] Furosemide [Lasix] 80 mg PO QAM 11/29/15 [History] Omeprazole 20 mg PO QPM 11/29/15 [History] Simvastatin [Zocor] 20 mg PO HS 11/29/15 [History] OxyCODONE ER (12 HR) [OxyCONTIN] 20 mg PO Q8HR 12/01/15 [History] Cyclobenzaprine HCl 2.5 - 5 mg PO TID PRN 05/24/16 [History] Pregabalin [Lyrica] 25 mg PO TID 05/24/16 [History] Allergies pregabalin [From Lyrica] Adverse Reaction (Verified 12/01/15 12:15) Confusion tamsulosin [From Flomax] Adverse Reaction (Verified 12/01/15 12:15) Dizziness Review of Systems All Systems: reviewed and no additional remarkable complaints except as stated ( ten system reviewed) Exam - Vital Signs Vital signs: Initial Vital Signs Temp Pulse Resp BP Pulse Ox 97.5 F L 71 20 175/74 94 L 05/24/16 15:12 05/24/16 15:12 05/24/16 15:12 05/24/16 15:12 05/24/16 15:12 Vital Signs - Last 8 Hours Temp Pulse Resp BP Pulse Ox 05/27/16 11:36 98.2 F 61 14 155/78 95 05/27/16 08:48 96 05/27/16 07:28 97.8 F 52 15 139/69 96 Intake and Output 05/26/16 05/27/16 05/27/16 23:59 07:59 15:59 Intake Total 240 / 240 520 / 520 Output Total 975 / 975 350 / 350 400 / 400 Balance -735 / -735 -350 / -350 120 / 120 Intake: Oral 240 / 240 520 / 520 Output: Urine 975 / 975 350 / 350 0 / 0 Catheter 400 / 400 Other: Meal Dinner Lunch Percent of Meal Consumed 100% 45% Weight 99.5 kg Patient Weight 05/27/16 23:59 Weight 99.5 kg - General Appearance General appearance: well-developed, well-nourished EENT: ATNC, mucous membranes moist Neck: no JVD, supple Respiratory: clear Cardiology: no edema, normal S1, normal S2 Gastrointestinal: no tenderness, no guarding Integumentary: warm and dry Neurologic: no focal deficit Musculoskeletal: no deformities Psychiatric: mood/affect appropriate Results - Lab Results 05/27/16 07:50 05/27/16 07:50 Most recent lab results Calcium 9.5 mg/dL (8.6-10.8) 05/27/16 07:50 Consult Discharge Plan - Plan Referrals: Vinay Rubin DO [Primary Care Provider] - (Web request made 05/24/16)
[2016-05-27] MEDS ORDERED: Ferumoxytol 510 MG in 0.9 % Sodium Chloride 100 ML IVPB ONE (14:04)
[2016-05-27 15:26] VITALS: BP 112/65
--- NOTE | 2016-05-27 16:23 | Discharge Summary ---
Date of Encounter: 05/27/16 Time of Encounter: 16:21 - Discharge Diagnosis (1) CHF (congestive heart failure) Priority: Primary Status: Chronic Qualifiers: Congestive heart failure type: diastolic Congestive heart failure chronicity: chronic Qualified Code(s): I50.32 - Chronic diastolic (congestive ) heart failure (2) COPD (chronic obstructive pulmonary disease) Priority: Secondary Status: Chronic Qualifiers: COPD type: chronic bronchitis Chronic bronchitis type: unspecified Qualified Code(s): J42 - Unspecified chronic bronchitis (3) Hypertension Priority: Secondary Status: Chronic Qualifiers: Hypertension type: essential hypertension Qualified Code(s): I10 - Essential (primary) hypertension (4) CKD (chronic kidney disease) stage 4, GFR 15-29 ml/min Priority: Secondary Status: Chronic (5) Diabetes mellitus Priority: Secondary Status: Chronic Qualifiers: Diabetes mellitus type: type 2 Diabetes mellitus complication status: with unspecified complications Diabetes mellitus [employer] insulin use: without [employer] use Qualified Code(s): E11.8 - Type 2 diabetes mellitus with unspecified complications (6) Anemia Priority: Secondary Status: Chronic Qualifiers: Anemia type: unspecified type Qualified Code(s): D64.9 - Anemia, unspecified - Discharge Medications Prescriptions: Furosemide [Lasix] 40 mg PO BID #60 tab Tamsulosin [Flomax] 0.4 mg PO DAILY #30 capsule Home Medications: Allopurinol [Zyloprim] 100 mg PO QAM 11/29/15 [History] Amitriptyline [Elavil] 50 - 100 mg PO HS 11/29/15 [History] Calcitriol [Rocaltrol] 0.25 mcg PO BID 11/29/15 [History] Docusate Sodium [Colace] 100 mg PO QID PRN 11/29/15 [History] Eletriptan HBr [Relpax] 20 mg PO AD PRN 11/29/15 [History] Ergocalciferol (VITAMIN D2) [Vitamin D2] 2,000 unit PO DAILY 11/29/15 [History] FLUoxetine HCl [Prozac] 40 mg PO QAM 11/29/15 [History] Ferrous Sulfate 325 mg PO BID 11/29/15 [History] Folic Acid 1 mg PO DAILY 11/29/15 [History] Omeprazole 20 mg PO QPM 11/29/15 [History] Simvastatin [Zocor] 20 mg PO HS 11/29/15 [History] OxyCODONE ER (12 HR) [OxyCONTIN] 20 mg PO Q8HR 12/01/15 [History] Cyclobenzaprine HCl 2.5 - 5 mg PO TID PRN 05/24/16 [History] Pregabalin [Lyrica] 25 mg PO TID 05/24/16 [History] Furosemide [Lasix] 40 mg PO BID #60 tab 05/27/16 [Rx] Tamsulosin [Flomax] 0.4 mg PO DAILY #30 capsule 05/27/16 [Rx] Allergies/Adverse Reactions: Allergies pregabalin [From Lyrica] Adverse Reaction (Verified 12/01/15 12:15) Confusion tamsulosin [From Flomax] Adverse Reaction (Verified 12/01/15 12:15) Dizziness Procedures/tests Complete & Pending: Procedures Performed prior 72 hours Category Date Time Status Retroperitoneal Ultrasound - Complete [US Exams 05/26/16 09:30 Completed retroperitoneal comp] [US] Routine EV echocardiogram Routine Y 05/25/16 22:11 Completed Date of admission: 05/24/16 17:46 Primary care physician: Vinay Rubin DO Consults: 05/25/16 16:56 Consult to Cardiology [CONS] Routine Comment: Consulting Provider: Cardiology Latoya Reason for Consult: please evalutae this patient with diastolic CHF not following with cardiology for medication adjustment now presenting with CHF exacerbation. Call Completed: No 05/26/16 14:30 Consult to Nephrology [CONS] Routine Consulting Provider: Kidney Latoya/ANSELMO/REINIER/JULITA Reason for Consult: micah on CKD Time Notified: 12:00 Call Completed: Yes Discharging clinician: Augustus Mendoza Anticipated date of discharge: 05/27/16 - Patient Status Disposition: Home, Self-Care Condition: Fair Functional capacity at discharge: independent ambulation Overall status at discharge: patient is back to baseline - Discharge Instructions Instructions: Furosemide (By mouth), Tamsulosin (By mouth), Heart Failure (DC) , Anemia (GEN) Follow Up With: Vinay Rubin DO [Primary Care Provider] - (Web request made 05/24/16) - Diet and Activity Activity: resume usual activities as tolerated Diet: other (fluid restricted diet 1.5l/day) Interval History: Mr. Castrejon is a 61 year old male with a relevant past medical history of ROMANA, hyperlipidemia, CHF, COPD, Sleep apnea, Smoking history, DVT, shortness of breath, thrombocytopenia, depression, DM, anemia, sleep apnea. Patient states he had been seeing his PCP and she was titrating his lasix due to recent weight gain. PCP was concerned and ordered chest x-ray. Chest x-ray was abnormal so he was recommended to come to ER by PCP office. Patient states his weight is up about 30 pounds. Patient states increased shortness of breath on admission. CXR on admission shows CHF with pulmonary edema. Known diastolic heart failure per patient. -Echo 05/25/16 with LVEF 65%, moderate left ventricular diastolic dysfunction, mildly dilated left atrium, no significant valvular dysfunction, mild pulmonary hypertension, all wall segments with normal motion. cardiology was consulted to reconcile his meds. - was started On lasix 40mg IV BID with which patinet improved symptomatically. -Unable to add beta see due to bradycardia. Average HR 54. -Unable to add mer inhibitor due to worsening kidney function. -Unable to add asa due to anemia. renal was also consulted given his worsening kidney function. Low sodium diet advised Fluid restriction at 1.5liters a day advised No ACEi due to poor renal function. renal US did not show any hydronephrosis but residual volume. HE is discharged in stable condition, will discharge him on oral Lasix twice a day for now. Patient will follow-up with his PCP and Dr. Sweet as outpatient, SCr worse than previous baseline but no acute indication for RESP THER at this time as per renal. Hospital course: Mr. Castrejon is a 61 year old male Time spent discussing smoking cessation with patient: more than 10 minutes - Time Spent with Patient Total time spent providing and/or coordinating discharge services: Greater than 30 minutes - Constitutional Vitals: Temp Pulse Resp BP Pulse Ox 97.8 F 60 16 112/65 92 05/27/16 15:24 05/27/16 15:24 05/27/16 15:24 05/27/16 15:24 05/27/16 15:24 General appearance: Present: A&O X 3 Exam: General appearance: well-developed, well-nourished EENT: ATNC, mucous membranes moist Neck: no JVD, supple Respiratory: clear Cardiology: no edema, normal S1, normal S2 Gastrointestinal: no tenderness, no guarding Integumentary: warm and dry Neurologic: no focal deficit Musculoskeletal: no deformities Psychiatric: mood/affect appropriate
== END 2016-05-27 17:00 | disposition home or self-care (01) ==
LOC: 2ANU 15:11 → EMEROO 15:11 → 2ANU 19:47
PROVIDERS: ADMIT Internal Medicine; ATTEND Internal Medicine Endocrinology, Diabetes & Metabolism

== ENCOUNTER 2018-08-22 17:00 | Inpatient (IN) ==
[~2018-08-22 17:00] MED LIST: Piperacillin/Tazobactam 4.5 GM in 0.9 % Sodium Chloride Mini Bag 100 ML IVPB ONE
[2018-08-22] MEDS ORDERED: 0.9 % Sodium Chloride 1,000 ML IVC ONE (17:12)
[2018-08-22 17:42] LABS: Hematocrit 27.9 % (37.5-50.1); Hemoglobin 9.4 g/dL (12.9-16.9); Immature Granulocytes % 0.6 % (0-4); Lymphocytes # 0.2 K/mcL (0.6-4.6); Mean Corpuscular HGB Conc 33.7 g/dL (31.6-35.5); Mean Corpuscular Hemoglobin 33.8 pg (28.0-33.3); Mean Corpuscular Volume 100.4 fL (83.0-100.0); Monocytes # 0.2 K/mcL (0.0-1.3); Monocytes % 6.8 %; Neutrophils # 2.8 K/mcL (1.6-8.9); Red Blood Count 2.78 M/mcL (4.19-5.50); Red Cell Distribution Width 15.4 % (11.5-14.5); Segmented Neutrophils % 87.6 %; White Blood Count 3.2 K/mcL (4.3-11.1)
[2018-08-22 17:43] LABS: Platelet Count 47 K/mcL (140-400)
[2018-08-22 17:58] LABS: Macrocytosis Present (Not Present); Platelet Estimate Marked Decrease (Normal)
[2018-08-22 18:06] LABS: Albumin 4.1 g/dL (3.5-5.7); Albumin/Globulin Ratio 1.4 (1.1-2.2); Bilirubin,Direct 0.2 mg/dL (0.0-0.2); Bilirubin,Indirect 0.4 mg/dL (0.0-1.2); Bilirubin,Total 0.6 mg/dL (0.3-1.0); Calcium 9.2 mg/dL (8.6-10.3); Potassium 4.1 mEq/L (3.5-5.1); Total Protein 7.1 g/dL (6.4-8.9)
[2018-08-22 18:08] LABS: Troponin I 0.07 ng/mL (< 0.04)
[2018-08-22] MEDS ORDERED: Piperacillin/Tazobactam 4.5 GM in 0.9 % Sodium Chloride Mini Bag 100 ML IVPB ONE (19:37)
[2018-08-22 20:25] LABS: INR 1.2
[2018-08-22 21:41] LABS: Bilirubin,Urine Negative (Negative); Blood,Urine Negative (Negative); Clarity,Urine Clear (Clear); Glucose,Urine (UA) Normal (Normal); Ketones,Urine Negative (Negative); Leukocyte Esterase,Urine Negative (Negative); Nitrite,Urine Negative (Negative); Protein,Urine 100 mg/dL (Neg-Trace); Specific Gravity,Urine 1.009 (1.010-1.025); Urobilinogen,Urine Normal (Normal)
[2018-08-22 21:44] LABS: Bacteria,Urine None Seen per hpf (None-Few); Hyaline Casts,Urine None Seen per lpf (None-Few); RBC,Urine 0-3 per hpf (0-3); Squamous Epithelial Cell,Urine Few per lpf (None-Few); WBC,Urine 0-3 per hpf (0-3)
[2018-08-22 21:50] LABS: Color,Urine Yellow (Yellow)
[2018-08-22] MEDS ORDERED: Naloxone 0.4 MG/ML INJ IVP PRN (23:43)
[2018-08-22] MEDS ORDERED: Albuterol 2.5 MG/3 ML NEBULIZER IH PRN (23:43)
[2018-08-23] MEDS ORDERED: levoFLOXacin 750 MG/150 ML 750 MG/150 ML BAG IVPB ONE (00:30)
[2018-08-23 01:01] LABS: Red Cell Distribution Width 15.6 % (11.5-14.5)
[2018-08-23 01:03] LABS: Basophils % 0.3 %; Hemoglobin 8.5 g/dL (12.9-16.9); Immature Granulocytes % 0.7 % (0-4); Immature Platelets 4.7 % (1.1-6.1); Lymphocytes # 0.2 K/mcL (0.6-4.6); Lymphocytes % 7.5 %; Mean Corpuscular Hemoglobin 34.6 pg (28.0-33.3); Mean Corpuscular Volume 101.6 fL (83.0-100.0); Mean Platelet Volume 10.6 fL (9.4-12.4); Monocytes # 0.2 K/mcL (0.0-1.3); Monocytes % 5.8 %; Neutrophils # 2.5 K/mcL (1.6-8.9); Red Blood Count 2.46 M/mcL (4.19-5.50); Segmented Neutrophils % 85.7 %; White Blood Count 2.9 K/mcL (4.3-11.1)
[2018-08-23 01:05] LABS: Platelet Count 47 K/mcL (140-400)
[2018-08-23 01:08] LABS: INR 1.3; Prothrombin Time 14.2 Seconds (9.4-12.1)
[2018-08-23 01:11] LABS: Activated Partial Thrombo Time 30.5 Seconds (26.0-36.0)
[2018-08-23 01:25] LABS: Albumin 3.7 g/dL (3.5-5.7); Albumin/Globulin Ratio 1.3 (1.1-2.2); Bilirubin,Total 0.8 mg/dL (0.3-1.0); Calcium 8.9 mg/dL (8.6-10.3); Globulin 2.8 g/dL (2.4-3.5); Magnesium 1.5 mg/dL (1.6-2.6); Potassium 3.9 mEq/L (3.5-5.1); Total Protein 6.5 g/dL (6.4-8.9)
[2018-08-23 01:33] LABS: Troponin I 0.09 ng/mL (< 0.04)
[2018-08-23] MEDS: Acetaminophen 325 MG TABLET PO PRN ×2 (01:43→17:16)
[2018-08-23] MEDS: Folic Acid 1 MG TABLET PO SCH (09:03)
[2018-08-23] MEDS: Cholecalciferol (D-3) 1,000 UNIT (25MCG) TABLET PO SCH (09:03)
[2018-08-23] MEDS: Piperacillin/Tazobactam 3.375 GM in 0.9 % Sodium Chloride Mini Bag 100 ML IVPB SCH ×2 (09:04→20:35)
[2018-08-23] MEDS: FLUoxetine 20 MG CAPSULE PO SCH (09:04)
[2018-08-23] MEDS: Pregabalin 25 MG CAPSULE PO SCH (09:04)
[2018-08-23] MEDS: Ascorbic Acid 500 MG TABLET PO SCH (09:04)
[2018-08-23] MEDS: Vitamin B Complex/Vit C/Vit E 1 EACH TABLET PO SCH (09:05)
[2018-08-23] MEDS ORDERED: 0.9 % Sodium Chloride 250 ML IVC PRN (09:21)
[2018-08-23] MEDS ORDERED: 0.9 % Sodium Chloride 1,000 ML PRIME SCH (09:30)
[2018-08-24] MEDS: Acetaminophen 325 MG TABLET PO PRN (00:07)
[2018-08-24 02:44] LABS: Immature Granulocytes % 0.3 % (0-4); Mean Corpuscular HGB Conc 33.6 g/dL (31.6-35.5); White Blood Count 3.1 K/mcL (4.3-11.1)
[2018-08-24 02:46] LABS: Hematocrit 24.4 % (37.5-50.1); Hemoglobin 8.2 g/dL (12.9-16.9); Immature Platelets 9.2 % (1.1-6.1); Lymphocytes # 0.2 K/mcL (0.6-4.6); Lymphocytes % 5.5 %; Mean Corpuscular Hemoglobin 33.6 pg (28.0-33.3); Mean Platelet Volume 11.3 fL (9.4-12.4); Monocytes # 0.3 K/mcL (0.0-1.3); Monocytes % 8.7 %; Red Blood Count 2.44 M/mcL (4.19-5.50); Red Cell Distribution Width 15.5 % (11.5-14.5); Segmented Neutrophils % 85.5 %
[2018-08-24 02:47] LABS: Neutrophils # 2.7 K/mcL (1.6-8.9); Platelet Count 44 K/mcL (140-400)
[2018-08-24 02:53] LABS: Calcium 8.7 mg/dL (8.6-10.3); Potassium 3.9 mEq/L (3.5-5.1)
[2018-08-24 03:08] LABS: Platelet Estimate Decreased (Normal); Poikilocytosis 1+ (Not Present)
[2018-08-24] MEDS ORDERED: Vancomycin 500 MG in 0.9 % Sodium Chloride Mini Bag 100 ML IVPB ONE (04:00)
[2018-08-24 08:27] LABS: Acinetobacter baumannii by PCR Not Detected (Not Detect); Candida albicans by PCR Not Detected (Not Detect); Candida glabrata by PCR Not Detected (Not Detect); Candida krusei by PCR Not Detected (Not Detect); Candida parapsilosis by PCR Not Detected (Not Detect); Candida tropicalis by PCR Not Detected (Not Detect); Enterobacter cloacae Cmplx PCR Not Detected (Not Detect); Enterobacteriaceae by PCR Not Detected (Not Detect); Enterococcus by PCR Not Detected (Not Detect); Escherichia coli by PCR Not Detected (Not Detect); Klebsiella oxytoca by PCR Not Detected (Not Detect); Klebsiella pneumoniae by PCR Not Detected (Not Detect); Proteus by PCR Not Detected (Not Detect); Pseudomonas aeruginosa by PCR Not Detected (Not Detect); Serratia marcescens by PCR Not Detected (Not Detect); Staphylococcus aureus by PCR DETECTED (Not Detect); Staphylococcus by PCR DETECTED (Not Detect); Streptococcus agalactiae(B)PCR Not Detected (Not Detect); Streptococcus by PCR Not Detected (Not Detect); Streptococcus pneumoniae PCR Not Detected (Not Detect); Streptococcus pyogenes (A) PCR Not Detected (Not Detect); mecA Methicillin-Resist Gene Not Detected (Not Detect)
[2018-08-24] MEDS: Vitamin B Complex/Vit C/Vit E 1 EACH TABLET PO SCH (09:44)
[2018-08-24] MEDS: Cholecalciferol (D-3) 1,000 UNIT (25MCG) TABLET PO SCH (09:44)
[2018-08-24] MEDS: Ascorbic Acid 500 MG TABLET PO SCH (09:44)
[2018-08-24] MEDS: Pregabalin 25 MG CAPSULE PO SCH (09:44)
[2018-08-24] MEDS: Folic Acid 1 MG TABLET PO SCH (09:44)
[2018-08-24] MEDS: FLUoxetine 20 MG CAPSULE PO SCH (09:44)
[2018-08-24] MEDS ORDERED: Azithromycin 500 MG in D5% in Water 250 ML IVPB SCH (14:00)
[2018-08-24 15:11] LABS: Adenovirus Not Detected (Not Detect); Bordetella Pertussis Not Detected (Not Detect); Chlamydophila pneumoniae Not Detected (Not Detect); Coronavirus 229E Not Detected (Not Detect); Coronavirus HKU1 Not Detected (Not Detect); Coronavirus NL63 Not Detected (Not Detect); Coronavirus OC43 Not Detected (Not Detect); Human Metapneumovirus Not Detected (Not Detect); Human Rhinovirus/Enterovirus Not Detected (Not Detect); Influenza A Subtype 2009 H1 Not Detected (Not Detect); Influenza B Not Detected (Not Detect); Mycoplasma pneumoniae Not Detected (Not Detect); Parainfluenza Virus 1 Not Detected (Not Detect); Parainfluenza Virus 2 Not Detected (Not Detect); Parainfluenza Virus 3 Not Detected (Not Detect); Parainfluenza Virus 4 Not Detected (Not Detect); Respiratory Syncytial Virus Not Detected (Not Detect)
[2018-08-24] MEDS: Magnesium Oxide 400 MG TABLET PO SCH ×2 (16:43→20:28)
[2018-08-24] MEDS ORDERED: LEVOFLOXACIN 500 MG/100 ML MLS IVPB SCH (21:00)
[2018-08-25 03:56] LABS: Eosinophils % 0.3 %; Red Blood Count 2.16 M/mcL (4.19-5.50)
[2018-08-25 03:58] LABS: Hematocrit 21.9 % (37.5-50.1); Hemoglobin 7.2 g/dL (12.9-16.9); Immature Granulocytes % 0.3 % (0-4); Immature Platelets 12.2 % (1.1-6.1); Lymphocytes # 0.3 K/mcL (0.6-4.6); Mean Corpuscular HGB Conc 32.9 g/dL (31.6-35.5); Mean Corpuscular Hemoglobin 33.3 pg (28.0-33.3); Mean Corpuscular Volume 101.4 fL (83.0-100.0); Monocytes # 0.4 K/mcL (0.0-1.3); Monocytes % 9.8 %; Neutrophils # 2.9 K/mcL (1.6-8.9); Red Cell Distribution Width 15.4 % (11.5-14.5); Segmented Neutrophils % 80.6 %; White Blood Count 3.6 K/mcL (4.3-11.1)
[2018-08-25 04:09] LABS: Platelet Count 53 K/mcL (140-400)
[2018-08-25 04:15] LABS: Calcium 8.9 mg/dL (8.6-10.3); Potassium 3.8 mEq/L (3.5-5.1)
[2018-08-25 04:37] LABS: Platelet Estimate Decreased (Normal)
[2018-08-25] MEDS ORDERED: 0.9 % Sodium Chloride 250 ML IVC PRN (06:34)
[2018-08-25] MEDS: Piperacillin/Tazobactam 3.375 GM in 0.9 % Sodium Chloride Mini Bag 100 ML IVPB SCH (06:50)
[2018-08-25] MEDS: Cholecalciferol (D-3) 1,000 UNIT (25MCG) TABLET PO SCH (07:34)
[2018-08-25] MEDS: Ascorbic Acid 500 MG TABLET PO SCH (07:34)
[2018-08-25] MEDS: FLUoxetine 20 MG CAPSULE PO SCH (07:34)
[2018-08-25] MEDS: Pregabalin 25 MG CAPSULE PO SCH (07:34)
[2018-08-25] MEDS: Magnesium Oxide 400 MG TABLET PO SCH ×2 (07:34→20:09)
[2018-08-25] MEDS: Folic Acid 1 MG TABLET PO SCH (07:35)
[2018-08-25] MEDS: Vitamin B Complex/Vit C/Vit E 1 EACH TABLET PO SCH (07:35)
[2018-08-25] MEDS ORDERED: Aminoglycoside Consult 1 EACH MC ONE (07:47)
[2018-08-25] MEDS ORDERED: Azithromycin 250 MG TABLET PO SCH (09:00)
[2018-08-25] MEDS ORDERED: 0.9 % Sodium Chloride 1,000 ML ONE (11:49)
[2018-08-25] MEDS ORDERED: ceFAZolin 1,000 MG in 0.9 % Sodium Chloride Mini Bag 100 ML IVPB SCH (14:00)
[2018-08-25] MEDS: ceFAZolin 1,000 MG in 0.9 % Sodium Chloride Mini Bag 100 ML IVPB SCH (14:21)
[2018-08-26 07:27] LABS: Eosinophils % 1.6 %; Hematocrit 21.9 % (37.5-50.1); Hemoglobin 7.3 g/dL (12.9-16.9); Immature Granulocytes % 0.4 % (0-4); Lymphocytes # 0.4 K/mcL (0.6-4.6); Lymphocytes % 13.6 %; Mean Corpuscular HGB Conc 33.3 g/dL (31.6-35.5); Mean Corpuscular Hemoglobin 33.8 pg (28.0-33.3); Mean Corpuscular Volume 101.4 fL (83.0-100.0); Mean Platelet Volume 12.1 fL (9.4-12.4); Monocytes # 0.2 K/mcL (0.0-1.3); Monocytes % 8.9 %; Red Blood Count 2.16 M/mcL (4.19-5.50); Red Cell Distribution Width 15.7 % (11.5-14.5); Segmented Neutrophils % 75.5 %; White Blood Count 2.6 K/mcL (4.3-11.1)
[2018-08-26 07:29] LABS: Platelet Count 55 K/mcL (140-400); Platelet Estimate Decreased (Normal)
[2018-08-26 07:44] LABS: Potassium 3.8 mEq/L (3.5-5.1)
[2018-08-26] MEDS ORDERED: Lidocaine Viscous Oral Soln 15 ML SOLUTION MM PRN (09:53)
[2018-08-26] MEDS ORDERED: *HR* FentaNYL (PF) 100 MCG/2 ML VIAL IVP PRN (09:53)
[2018-08-26] MEDS ORDERED: 0.9 % Sodium Chloride 500 ML IVC ONE ×2 (09:54→10:12)
[2018-08-26] MEDS ORDERED: *HR* Midazolam HCl 5 MG/5 ML VIAL IVP PRN (09:54)
[2018-08-26] MEDS: ceFAZolin 1,000 MG in 0.9 % Sodium Chloride Mini Bag 100 ML IVPB SCH (13:13)
[2018-08-26] MEDS: Ascorbic Acid 500 MG TABLET PO SCH (13:15)
[2018-08-26] MEDS: Cholecalciferol (D-3) 1,000 UNIT (25MCG) TABLET PO SCH (13:16)
[2018-08-26] MEDS: Vitamin B Complex/Vit C/Vit E 1 EACH TABLET PO SCH (13:16)
[2018-08-26] MEDS: Magnesium Oxide 400 MG TABLET PO SCH ×2 (13:16→20:27)
[2018-08-26] MEDS: Folic Acid 1 MG TABLET PO SCH (13:16)
[2018-08-26] MEDS: Pregabalin 25 MG CAPSULE PO SCH (13:16)
[2018-08-26] MEDS: FLUoxetine 20 MG CAPSULE PO SCH (13:17)
[2018-08-27 06:43] LABS: Immature Granulocytes % 0.4 % (0-4); Red Cell Distribution Width 15.6 % (11.5-14.5)
[2018-08-27 06:45] LABS: Basophils % 0.4 %; Eosinophils # 0.1 K/mcL (0.0-0.6); Eosinophils % 1.8 %; Hematocrit 21.1 % (37.5-50.1); Immature Platelets 10.7 % (1.1-6.1); Lymphocytes # 0.3 K/mcL (0.6-4.6); Lymphocytes % 11.2 %; Mean Corpuscular HGB Conc 33.2 g/dL (31.6-35.5); Mean Corpuscular Hemoglobin 33.8 pg (28.0-33.3); Mean Corpuscular Volume 101.9 fL (83.0-100.0); Monocytes # 0.2 K/mcL (0.0-1.3); Monocytes % 7.6 %; Neutrophils # 2.2 K/mcL (1.6-8.9); Red Blood Count 2.07 M/mcL (4.19-5.50); Segmented Neutrophils % 78.6 %; White Blood Count 2.8 K/mcL (4.3-11.1)
[2018-08-27 06:50] LABS: Platelet Count 62 K/mcL (140-400)
[2018-08-27 07:08] LABS: Calcium 8.9 mg/dL (8.6-10.3); Potassium 4.2 mEq/L (3.5-5.1)
[2018-08-27] MEDS ORDERED: 0.9 % Sodium Chloride 250 ML IVC PRN (07:14)
[2018-08-27] MEDS: ceFAZolin 1,000 MG in 0.9 % Sodium Chloride Mini Bag 100 ML IVPB SCH (13:39)
[2018-08-27] MEDS: Magnesium Oxide 400 MG TABLET PO SCH ×2 (13:40→20:54)
[2018-08-27] MEDS: Cholecalciferol (D-3) 1,000 UNIT (25MCG) TABLET PO SCH (13:40)
[2018-08-27] MEDS: FLUoxetine 20 MG CAPSULE PO SCH (13:40)
[2018-08-27] MEDS: Ascorbic Acid 500 MG TABLET PO SCH (13:40)
[2018-08-27] MEDS: Pregabalin 25 MG CAPSULE PO SCH (13:40)
[2018-08-27] MEDS: Vitamin B Complex/Vit C/Vit E 1 EACH TABLET PO SCH (13:40)
[2018-08-27] MEDS: Folic Acid 1 MG TABLET PO SCH (13:40)
[2018-08-27] MEDS: Acetaminophen 325 MG TABLET PO PRN (20:53)
[2018-08-28 04:05] LABS: Red Cell Distribution Width 15.3 % (11.5-14.5)
[2018-08-28 04:07] LABS: Eosinophils # 0.1 K/mcL (0.0-0.6); Eosinophils % 2.2 %; Immature Granulocytes % 0.7 % (0-4); Immature Platelets 11.9 % (1.1-6.1); Lymphocytes # 0.4 K/mcL (0.6-4.6); Lymphocytes % 13.7 %; Mean Corpuscular HGB Conc 31.8 g/dL (31.6-35.5); Mean Corpuscular Hemoglobin 33.5 pg (28.0-33.3); Mean Corpuscular Volume 105.3 fL (83.0-100.0); Mean Platelet Volume 11.9 fL (9.4-12.4); Monocytes # 0.2 K/mcL (0.0-1.3); Monocytes % 8.7 %; Neutrophils # 2.1 K/mcL (1.6-8.9); Red Blood Count 2.09 M/mcL (4.19-5.50); Segmented Neutrophils % 74.7 %; White Blood Count 2.8 K/mcL (4.3-11.1)
[2018-08-28 04:17] LABS: Platelet Count 84 K/mcL (140-400)
[2018-08-28 04:23] LABS: Calcium 8.8 mg/dL (8.6-10.3); Potassium 3.6 mEq/L (3.5-5.1)
[2018-08-28 07:05] VITALS: BP 129/68
[2018-08-28] MEDS: Pregabalin 25 MG CAPSULE PO SCH (08:59)
[2018-08-28] MEDS: Ascorbic Acid 500 MG TABLET PO SCH (08:59)
[2018-08-28] MEDS: FLUoxetine 20 MG CAPSULE PO SCH (08:59)
[2018-08-28] MEDS: Vitamin B Complex/Vit C/Vit E 1 EACH TABLET PO SCH (09:00)
[2018-08-28] MEDS: Magnesium Oxide 400 MG TABLET PO SCH (09:00)
[2018-08-28] MEDS: Folic Acid 1 MG TABLET PO SCH (09:00)
[2018-08-28] MEDS: Cholecalciferol (D-3) 1,000 UNIT (25MCG) TABLET PO SCH (09:00)
[2018-08-28] MEDS ORDERED: ceFAZolin 1,000 MG in 0.9 % Sodium Chloride Mini Bag 100 ML IVPB SCH (10:00)
== END 2018-08-28 13:10 | disposition home or self-care (01) | DRG 871 ==
LOC: 2ANU 17:00 → EMEROOARM 17:00 → 2ANU 21:26 → SUATTDRO 23:43
PROVIDERS: ADMIT Pediatrics; ATTEND Internal Medicine

== ENCOUNTER 2018-12-22 19:30 | Observation (INO) ==
[2018-12-22 21:05] LABS: Basophils % 0.4 %; Eosinophils % 2.1 %; Immature Granulocytes % 0.2 % (0-4)
[2018-12-22 21:07] LABS: Eosinophils # 0.1 K/mcL (0.0-0.6); Hematocrit 26.9 % (37.5-50.1); Hemoglobin 9.2 g/dL (12.9-16.9); Immature Platelets 5.3 % (1.1-6.1); Lymphocytes # 0.6 K/mcL (0.6-4.6); Lymphocytes % 12.2 %; Mean Corpuscular HGB Conc 34.2 g/dL (31.6-35.5); Mean Corpuscular Hemoglobin 34.5 pg (28.0-33.3); Mean Corpuscular Volume 100.7 fL (83.0-100.0); Monocytes # 0.3 K/mcL (0.0-1.3); Monocytes % 6.8 %; Neutrophils # 3.8 K/mcL (1.6-8.9); Red Blood Count 2.67 M/mcL (4.19-5.50); Segmented Neutrophils % 78.3 %; White Blood Count 4.8 K/mcL (4.3-11.1)
[2018-12-22 21:26] LABS: Albumin 3.9 g/dL (3.5-5.7); Albumin/Globulin Ratio 1.4 (1.1-2.2); Bilirubin,Total 0.4 mg/dL (0.3-1.0); Calcium 9.2 mg/dL (8.6-10.3); Globulin 2.7 g/dL (2.4-3.5); Platelet Count 89 K/mcL (140-400); Total Protein 6.6 g/dL (6.4-8.9)
[2018-12-22 21:27] LABS: Platelet Estimate Decreased (Normal)
[2018-12-22] MEDS ORDERED: Aspirin 81 MG TAB.CHEW PO STA (21:39)
[2018-12-22] MEDS ORDERED: Gadolinium Contrast Agent (WT Based) IV PRN (22:11)
[2018-12-22 22:15] LABS: INR 1.2; Prothrombin Time 13.2 Seconds (9.4-12.1)
[2018-12-22 22:18] LABS: Activated Partial Thrombo Time 31.6 Seconds (26.0-36.0)
[2018-12-22] MEDS ORDERED: Aspirin 81 MG TAB.CHEW ONE (22:27)
[2018-12-23] MEDS ORDERED: Naloxone 0.4 MG/ML INJ IVP PRN (00:40)
[2018-12-23] MEDS ORDERED: *HR* Heparin 5,000 UNIT/ML VIAL SQ SCH (01:20)
[2018-12-23] MEDS ORDERED: EPOETIN ALFA IJ SCH (05:15)
[2018-12-23] MEDS: *HR* Heparin 5,000 UNIT/ML VIAL SQ SCH ×2 (06:21→17:10)
[2018-12-23 06:43] LABS: Basophils % 0.3 %; Eosinophils % 6.1 %; INR 1.1; Immature Granulocytes % 0.3 % (0-4); Prothrombin Time 12.8 Seconds (9.4-12.1)
[2018-12-23 06:45] LABS: Eosinophils # 0.2 K/mcL (0.0-0.6); Hematocrit 24.7 % (37.5-50.1); Hemoglobin 8.4 g/dL (12.9-16.9); Immature Platelets 5.3 % (1.1-6.1); Lymphocytes # 0.7 K/mcL (0.6-4.6); Lymphocytes % 21.9 %; Mean Corpuscular Hemoglobin 33.9 pg (28.0-33.3); Mean Corpuscular Volume 99.6 fL (83.0-100.0); Mean Platelet Volume 11.6 fL (9.4-12.4); Monocytes # 0.4 K/mcL (0.0-1.3); Monocytes % 11.3 %; Neutrophils # 1.9 K/mcL (1.6-8.9); Red Blood Count 2.48 M/mcL (4.19-5.50); Red Cell Distribution Width 15.8 % (11.5-14.5); Segmented Neutrophils % 60.1 %; White Blood Count 3.1 K/mcL (4.3-11.1)
[2018-12-23 06:51] LABS: Platelet Count 77 K/mcL (140-400)
[2018-12-23 07:58] LABS: Albumin 3.6 g/dL (3.5-5.7); Albumin/Globulin Ratio 1.3 (1.1-2.2); Bilirubin,Total 0.4 mg/dL (0.3-1.0); Chol/HDL Ratio 2.5 (0-4.9); Globulin 2.7 g/dL (2.4-3.5); Phosphorous 7.5 mg/dL (2.7-4.5); Potassium 3.4 mEq/L (3.5-5.1); Total Protein 6.3 g/dL (6.4-8.9)
[2018-12-23 08:27] LABS: Thyroid Stimulating Hormone 1.361 mcIU/mL (0.340-5.600)
[2018-12-23] MEDS ORDERED: Renal Vitamin 1 CAP CAPSULE PO SCH (09:00)
[2018-12-23] MEDS ORDERED: Cholecalciferol (D-3) 1,000 UNIT (25MCG) TABLET PO SCH (09:00)
[2018-12-23] MEDS ORDERED: FLUoxetine 20 MG CAPSULE PO SCH (09:00)
[2018-12-23] MEDS ORDERED: Pregabalin 25 MG CAPSULE PO SCH (09:00)
[2018-12-23] MEDS ORDERED: Vitamin B Complex/Vit C/Vit E 1 EACH TABLET PO SCH (09:00)
[2018-12-23 09:17] LABS: Hepatitis B Surface Antibody < 3.10 mIU/mL
[2018-12-23 09:27] LABS: Hepatitis B Surface Antigen Nonreactive (Nonreactive)
[2018-12-23] MEDS ORDERED: 0.9 % Sodium Chloride 250 ML IVC PRN (09:46)
[2018-12-23] MEDS ORDERED: 0.9 % Sodium Chloride 1,000 ML PRIME SCH (10:00)
[2018-12-23 15:38] VITALS: BP 131/77
[2018-12-24] MEDS ORDERED: Folic Acid 1 MG TABLET PO SCH (09:00)
[2018-12-25] MEDS ORDERED: EPOETIN ALFA-EPBX 10,000 UNIT/ML VIAL SQ SCH (09:00)
== END 2018-12-23 17:32 | disposition home or self-care (01) ==
LOC: EMEROOARM 19:30 → 2ANU 19:30 → SUATTDRO 22:38 → 2ANU 22:39
PROVIDERS: ADMIT Internal Medicine; ATTEND Pharmacist

== ENCOUNTER 2019-03-03 11:47 | Observation (INO) ==
[2019-03-03] MEDS ORDERED: Aspirin 81 MG TAB.CHEW PO ONE (11:55)
[2019-03-03] MEDS ORDERED: Nitroglycerin 0.4 MG TAB.SUBL SL PRN (11:55)
[2019-03-03 12:24] LABS: Basophils % 0.3 %; Eosinophils # 0.1 K/mcL (0.0-0.6); Eosinophils % 1.3 %; Hematocrit 25.7 % (37.5-50.1); Hemoglobin 8.2 g/dL (12.9-16.9); Immature Granulocytes % 0.4 % (0-4); Lymphocytes # 0.6 K/mcL (0.6-4.6); Mean Corpuscular HGB Conc 31.9 g/dL (31.6-35.5); Mean Corpuscular Hemoglobin 33.6 pg (28.0-33.3); Mean Corpuscular Volume 105.3 fL (83.0-100.0); Mean Platelet Volume 11.5 fL (9.4-12.4); Monocytes # 0.5 K/mcL (0.0-1.3); Monocytes % 6.4 %; Platelet Count 158 K/mcL (140-400); Red Blood Count 2.44 M/mcL (4.19-5.50); Segmented Neutrophils % 83.6 %; White Blood Count 7.2 K/mcL (4.3-11.1)
[2019-03-03 12:45] LABS: INR 1.3; Prothrombin Time 14.3 Seconds (9.4-12.1)
[2019-03-03 12:48] LABS: Activated Partial Thrombo Time 33.9 Seconds (26.0-36.0)
[2019-03-03 12:56] LABS: Calcium 9.5 mg/dL (8.6-10.3); Potassium 6.9 mEq/L (3.5-5.1); Troponin I 0.04 ng/mL (< 0.04)
[2019-03-03] MEDS ORDERED: Insulin Human Regular 10 UNIT in 0.9 % Sodium Chloride 10 ML IV ONE (13:02)
[2019-03-03] MEDS ORDERED: Sodium Bicarbonate 50 MEQ/50 ML VIAL IVP ONE (13:03)
[2019-03-03] MEDS ORDERED: *HR* Dextrose 50 % in Water (Syg) 50 ML SYRINGE IVP ONE (13:03)
[2019-03-03] MEDS ORDERED: Calcium Gluconate 1,000 MG/10 ML VIAL IVPB ONE (13:20)
[2019-03-03] MEDS ORDERED: *HR* Dextrose 50 % in Water (Syg) 50 ML SYRINGE ONE (13:26)
[2019-03-03] MEDS: Calcium Gluconate 1gm/50mL 1 GM/50 ML BAG IVPB SCH ×2 (13:31→14:20)
[2019-03-03] MEDS ORDERED: 0.9 % Sodium Chloride 250 ML IVC PRN (13:39)
[2019-03-03] MEDS ORDERED: 0.9 % Sodium Chloride 1,000 ML PRIME SCH (13:45)
[2019-03-03] MEDS ORDERED: *HR* OxyCODONE/APAP 5/325 TABLET PO ONE (13:49)
[2019-03-03] MEDS ORDERED: Ondansetron 4 MG/2 ML VIAL IVP PRN (13:58)
[2019-03-03] MEDS ORDERED: Naloxone 0.4 MG/ML INJ IVP PRN (13:58)
[2019-03-03] MEDS ORDERED: Ipratropium/Albuterol Neb 3 ML IH PRN (14:02)
[2019-03-03 14:33] LABS: Hepatitis B Surface Antibody < 3.10 mIU/mL
[2019-03-03 14:44] LABS: Hepatitis B Surface Antigen Nonreactive (Nonreactive)
[2019-03-03] MEDS: Pregabalin 25 MG CAPSULE PO SCH ×2 (18:01→22:03)
[2019-03-03] MEDS: Apixaban 5 MG TABLET PO SCH (22:03)
[2019-03-03] MEDS: *HR* HYDROcodone/Acet 5/325 mg TABLET PO PRN (22:03)
[2019-03-04 06:08] LABS: Basophils % 0.3 %; Eosinophils # 0.1 K/mcL (0.0-0.6); Hematocrit 24.7 % (37.5-50.1); Hemoglobin 7.8 g/dL (12.9-16.9); Immature Granulocytes % 0.3 % (0-4); Lymphocytes # 0.5 K/mcL (0.6-4.6); Lymphocytes % 8.5 %; Mean Corpuscular HGB Conc 31.6 g/dL (31.6-35.5); Mean Corpuscular Hemoglobin 34.7 pg (28.0-33.3); Mean Corpuscular Volume 109.8 fL (83.0-100.0); Mean Platelet Volume 11.6 fL (9.4-12.4); Monocytes # 0.4 K/mcL (0.0-1.3); Monocytes % 6.2 %; Platelet Count 137 K/mcL (140-400); Red Blood Count 2.25 M/mcL (4.19-5.50); Red Cell Distribution Width 15.2 % (11.5-14.5); Segmented Neutrophils % 83.7 %
[2019-03-04 06:27] LABS: Calcium 9.4 mg/dL (8.6-10.3); Potassium 5.5 mEq/L (3.5-5.1)
[2019-03-04] MEDS ORDERED: 0.9 % Sodium Chloride 250 ML IVC PRN (07:26)
[2019-03-04] MEDS: Cyanocobalamin (B-12) 1,000 MCG TABLET PO SCH (08:34)
[2019-03-04] MEDS: Apixaban 5 MG TABLET PO SCH ×2 (08:34→22:08)
[2019-03-04] MEDS: Benzonatate 100 MG CAPSULE PO PRN ×2 (08:34→22:14)
[2019-03-04] MEDS: Cholecalciferol (D-3) 1,000 UNIT (25MCG) TABLET PO SCH (08:34)
[2019-03-04] MEDS: FLUoxetine 20 MG CAPSULE PO SCH (08:34)
[2019-03-04] MEDS: Pregabalin 25 MG CAPSULE PO SCH ×3 (08:34→22:09)
[2019-03-04] MEDS ORDERED: SODIUM ZIRCONIUM CYCLOSILICATE 5 GM POWD.PACK PO SCH (12:45)
[2019-03-04] MEDS: *HR* HYDROcodone/Acet 5/325 mg TABLET PO PRN (22:08)
[2019-03-05 03:46] LABS: Basophils % 0.2 %; Eosinophils # 0.1 K/mcL (0.0-0.6); Eosinophils % 1.3 %; Hematocrit 23.7 % (37.5-50.1); Hemoglobin 7.6 g/dL (12.9-16.9); Immature Granulocytes % 0.4 % (0-4); Lymphocytes # 0.7 K/mcL (0.6-4.6); Mean Corpuscular HGB Conc 32.1 g/dL (31.6-35.5); Mean Corpuscular Hemoglobin 34.4 pg (28.0-33.3); Mean Corpuscular Volume 107.2 fL (83.0-100.0); Mean Platelet Volume 11.4 fL (9.4-12.4); Monocytes # 0.5 K/mcL (0.0-1.3); Monocytes % 9.7 %; Neutrophils # 4.2 K/mcL (1.6-8.9); Platelet Count 158 K/mcL (140-400); Red Blood Count 2.21 M/mcL (4.19-5.50); Red Cell Distribution Width 15.1 % (11.5-14.5); Segmented Neutrophils % 76.4 %; White Blood Count 5.5 K/mcL (4.3-11.1)
[2019-03-05 04:06] LABS: Calcium 8.9 mg/dL (8.6-10.3); Potassium 4.7 mEq/L (3.5-5.1)
[2019-03-05] MEDS ORDERED: Morphine Sulfate 2 MG/ML SYRINGE IVP ONE (05:32)
[2019-03-05] MEDS ORDERED: Regadenoson 0.4 MG/5 ML SYRINGE IVP ONE (05:58)
[2019-03-05] MEDS ORDERED: SODIUM ZIRCONIUM CYCLOSILICATE 5 GM POWD.PACK PO SCH (09:00)
[2019-03-05] MEDS: FLUoxetine 20 MG CAPSULE PO SCH (09:52)
[2019-03-05] MEDS: Cholecalciferol (D-3) 1,000 UNIT (25MCG) TABLET PO SCH (09:52)
[2019-03-05] MEDS: Apixaban 5 MG TABLET PO SCH (09:52)
[2019-03-05] MEDS: Pregabalin 25 MG CAPSULE PO SCH ×2 (09:52→14:34)
[2019-03-05] MEDS: Cyanocobalamin (B-12) 1,000 MCG TABLET PO SCH (09:53)
[2019-03-05 11:26] VITALS: BP 99/56
[2019-03-05] MEDS: *HR* HYDROcodone/Acet 5/325 mg TABLET PO PRN (14:22)
== END 2019-03-05 15:23 | disposition home or self-care (01) ==
LOC: EMEROOARM 11:47 → 2ANU 11:47 → SUATTDRO 14:10 → 2ANU 16:22
PROVIDERS: ADMIT Family Medicine; ATTEND Internal Medicine

== ENCOUNTER 2019-03-09 18:07 | Observation (INO) ==
[2019-03-09] MEDS ORDERED: Aspirin 81 MG TAB.CHEW PO ONE (18:36)
[2019-03-09 20:19] LABS: Basophils % 0.2 %; Eosinophils % 0.5 %; Hematocrit 23.6 % (37.5-50.1); INR 1.6; Immature Granulocytes % 0.3 % (0-4); Lymphocytes # 0.5 K/mcL (0.6-4.6); Lymphocytes % 8.3 %; Mean Corpuscular HGB Conc 33.9 g/dL (31.6-35.5); Mean Corpuscular Hemoglobin 35.2 pg (28.0-33.3); Mean Platelet Volume 12.2 fL (9.4-12.4); Monocytes # 0.5 K/mcL (0.0-1.3); Neutrophils # 4.8 K/mcL (1.6-8.9); Prothrombin Time 18.6 Seconds (9.4-12.1); Red Blood Count 2.27 M/mcL (4.19-5.50); Red Cell Distribution Width 16.2 % (11.5-14.5); Segmented Neutrophils % 81.7 %; White Blood Count 5.9 K/mcL (4.3-11.1)
[2019-03-09 20:20] LABS: Platelet Count 89 K/mcL (140-400)
[2019-03-09 20:21] LABS: Activated Partial Thrombo Time 34.3 Seconds (26.0-36.0)
[2019-03-09 20:36] LABS: Albumin 3.4 g/dL (3.5-5.7); Albumin/Globulin Ratio 1.2 (1.1-2.2); Bilirubin,Direct 0.1 mg/dL (0.0-0.2); Bilirubin,Indirect 0.4 mg/dL (0.0-1.0); Bilirubin,Total 0.5 mg/dL (0.3-1.0); Calcium 8.5 mg/dL (8.6-10.3); Globulin 2.9 g/dL (2.4-3.5); Potassium 4.1 mEq/L (3.5-5.1); Total Protein 6.3 g/dL (6.4-8.9); Troponin I 0.05 ng/mL (< 0.04)
[2019-03-09] MEDS ORDERED: Aspirin 325 MG TABLET PO ONE (21:03)
[2019-03-10] MEDS ORDERED: 0.9 % Sodium Chloride 250 ML IVC PRN ×2 (03:45→07:49)
[2019-03-10] MEDS ORDERED: Nitroglycerin 0.4 MG TAB.SUBL SL PRN (03:58)
[2019-03-10] MEDS ORDERED: Naloxone 0.4 MG/ML INJ IVP PRN (03:58)
[2019-03-10 05:08] LABS: Immature Granulocytes % 0.4 % (0-4)
[2019-03-10 05:11] LABS: Basophils % 0.2 %; Eosinophils % 0.7 %; Hemoglobin 7.3 g/dL (12.9-16.9); Immature Platelets 7.3 % (1.1-6.1); Lymphocytes # 0.5 K/mcL (0.6-4.6); Lymphocytes % 10.3 %; Mean Corpuscular HGB Conc 34.8 g/dL (31.6-35.5); Mean Corpuscular Hemoglobin 34.9 pg (28.0-33.3); Mean Corpuscular Volume 100.5 fL (83.0-100.0); Mean Platelet Volume 12.4 fL (9.4-12.4); Monocytes # 0.3 K/mcL (0.0-1.3); Monocytes % 7.6 %; Neutrophils # 3.6 K/mcL (1.6-8.9); Red Blood Count 2.09 M/mcL (4.19-5.50); Segmented Neutrophils % 80.8 %; White Blood Count 4.5 K/mcL (4.3-11.1)
[2019-03-10 05:17] LABS: Platelet Count 75 K/mcL (140-400)
[2019-03-10 05:48] LABS: Albumin 3.2 g/dL (3.5-5.7); Albumin/Globulin Ratio 1.2 (1.1-2.2); Bilirubin,Total 0.4 mg/dL (0.3-1.0); Calcium 8.3 mg/dL (8.6-10.3); Chol/HDL Ratio 3.1 (0-4.9); Globulin 2.7 g/dL (2.4-3.5); Magnesium 1.8 mg/dL (1.6-2.6); Phosphorous 8.2 mg/dL (2.7-4.5); Total Protein 5.9 g/dL (6.4-8.9)
[2019-03-10] MEDS ORDERED: Albumin 25% 25gram/100mL 25 GM/100 ML IV.SOLN IVPB PRN (07:49)
[2019-03-10] MEDS ORDERED: *HR* Heparin 10,000 UNIT/10 ML VIAL IV PRN (07:49)
[2019-03-10] MEDS ORDERED: 0.9 % Sodium Chloride 1,000 ML PRIME SCH (08:00)
[2019-03-10 11:48] LABS: Procalcitonin 3.58 ng/mL (0.00-0.15)
[2019-03-10 13:05] VITALS: BP 115/89
[2019-03-10] MEDS ORDERED: *HR* HYDROcodone/Acet 5/325 mg TABLET PO ONE (13:32)
== END 2019-03-10 14:46 | disposition home or self-care (01) ==
LOC: 2ANU 18:07 → EMEROOARM 18:07 → 2ANU 22:33
PROVIDERS: ADMIT Internal Medicine; ATTEND Internal Medicine

== ENCOUNTER 2019-03-18 17:46 | Observation (INO) ==
[2019-03-18] MEDS ORDERED: Orphenadrine 60 MG/2 ML VIAL IM ONE (18:00)
[2019-03-18] MEDS ORDERED: *HR* FentaNYL (PF) 100 MCG/2 ML VIAL IM STA (18:01)
[2019-03-18] MEDS ORDERED: Dexamethasone 4 MG/ML VIAL IM ONE (18:01)
[2019-03-18] MEDS ORDERED: *HR* Heparin 5,000 UNIT/ML VIAL IVP ONE (19:34)
[2019-03-18] MEDS ORDERED: *HR* Heparin 5,000 UNIT/ML VIAL IVP PRN ×2 (19:34)
[2019-03-18] MEDS ORDERED: Heparin 25,000 UNIT/250 ML D5W 25,000 UNIT/250 ML IV.SOLN IVC SCH (19:45)
[2019-03-18] MEDS ORDERED: Dexamethasone 10 MG/ML VIAL ONE (19:56)
[2019-03-18] MEDS ORDERED: Naloxone 0.4 MG/ML INJ IVP PRN (20:38)
[2019-03-18] MEDS: Heparin 25,000 UNIT/250 ML D5W 25,000 UNIT/250 ML IV.SOLN IVC SCH (20:42)
[2019-03-18] MEDS ORDERED: Dexamethasone 10 MG/ML VIAL IVP ONE (20:43)
[2019-03-18 21:23] LABS: Hematocrit 23.6 % (37.5-50.1); Hemoglobin 7.8 g/dL (12.9-16.9); Mean Corpuscular HGB Conc 33.1 g/dL (31.6-35.5); Mean Corpuscular Hemoglobin 34.1 pg (28.0-33.3); Mean Corpuscular Volume 103.1 fL (83.0-100.0); Platelet Count 152 K/mcL (140-400); Red Blood Count 2.29 M/mcL (4.19-5.50); Red Cell Distribution Width 16.1 % (11.5-14.5); White Blood Count 8.2 K/mcL (4.3-11.1)
[2019-03-18 21:40] LABS: Albumin 3.5 g/dL (3.5-5.7); Albumin/Globulin Ratio 1.2 (1.1-2.2); Bilirubin,Total 0.5 mg/dL (0.3-1.0); Calcium 9.1 mg/dL (8.6-10.3); Phosphorous 8.6 mg/dL (2.7-4.5); Potassium 4.2 mEq/L (3.5-5.1); Total Protein 6.5 g/dL (6.4-8.9)
[2019-03-18 21:46] LABS: INR 1.4; Prothrombin Time 16.3 Seconds (9.4-12.1)
[2019-03-18 21:48] LABS: Heparin anti-factor XA UFH 1.93 IU/mL (0.30-0.70)
[2019-03-18] MEDS ORDERED: Benzonatate 100 MG CAPSULE PO PRN (22:27)
[2019-03-18] MEDS ORDERED: *HR* Warfarin 5 MG TABLET PO ONE (22:30)
[2019-03-19] MEDS: *HR* HYDROcodone/Acet 5/325 mg TABLET PO PRN ×2 (00:31→14:30)
[2019-03-19 06:38] LABS: Hematocrit 21.2 % (37.5-50.1); Hemoglobin 6.8 g/dL (12.9-16.9); Mean Corpuscular HGB Conc 32.1 g/dL (31.6-35.5); Mean Corpuscular Hemoglobin 33.7 pg (28.0-33.3); Mean Platelet Volume 10.5 fL (9.4-12.4); Platelet Count 115 K/mcL (140-400); Red Blood Count 2.02 M/mcL (4.19-5.50); Red Cell Distribution Width 16.1 % (11.5-14.5); White Blood Count 6.5 K/mcL (4.3-11.1)
[2019-03-19 06:51] LABS: INR 1.4; Prothrombin Time 15.6 Seconds (9.4-12.1)
[2019-03-19 06:58] LABS: Albumin 3.2 g/dL (3.5-5.7); Albumin/Globulin Ratio 1.2 (1.1-2.2); Bilirubin,Total 0.4 mg/dL (0.3-1.0); Calcium 8.8 mg/dL (8.6-10.3); Globulin 2.7 g/dL (2.4-3.5); Magnesium 2.1 mg/dL (1.6-2.6); Phosphorous 10.2 mg/dL (2.7-4.5); Potassium 4.4 mEq/L (3.5-5.1); Total Protein 5.9 g/dL (6.4-8.9)
[2019-03-19] MEDS ORDERED: 0.9 % Sodium Chloride 250 ML IVC SCH (08:00)
[2019-03-19] MEDS ORDERED: 0.9 % Sodium Chloride 250 ML IVC PRN (08:14)
[2019-03-19] MEDS ORDERED: 0.9 % Sodium Chloride 1,000 ML PRIME SCH (08:15)
[2019-03-19] MEDS: FLUoxetine 20 MG CAPSULE PO SCH (08:33)
[2019-03-19] MEDS: Cholecalciferol (D-3) 1,000 UNIT (25MCG) TABLET PO SCH (08:33)
[2019-03-19 10:55] LABS: Hematocrit 21.9 % (37.5-50.1); Hemoglobin 7.6 g/dL (12.9-16.9); Mean Corpuscular HGB Conc 34.7 g/dL (31.6-35.5); Mean Corpuscular Hemoglobin 34.7 pg (28.0-33.3); Mean Platelet Volume 10.4 fL (9.4-12.4); Platelet Count 137 K/mcL (140-400); Red Blood Count 2.19 M/mcL (4.19-5.50); White Blood Count 7.9 K/mcL (4.3-11.1)
[2019-03-19] MEDS ORDERED: Ipratropium/Albuterol Neb 3 ML IH PRN (12:58)
[2019-03-19] MEDS: Pregabalin 25 MG CAPSULE PO SCH ×2 (14:30→21:36)
[2019-03-19 14:43] LABS: Hematocrit 29.9 % (37.5-50.1)
[2019-03-19] MEDS ORDERED: *HR* FentaNYL PATCH 12 MCG PATCH TD SCH ×2 (16:30→17:30)
[2019-03-19] MEDS ORDERED: Acetaminophen 325 MG TABLET PO ONE (16:54)
[2019-03-19] MEDS: *HR* OxyCODONE/APAP 7.5/325 TABLET PO PRN ×2 (17:37→21:35)
[2019-03-19] MEDS ORDERED: *HR* Warfarin 5 MG TABLET PO ONE (18:00)
[2019-03-19] MEDS ORDERED: Warfarin perPT PO PRN ×2 (18:00)
[2019-03-19 18:53] LABS: Hematocrit 31.1 % (37.5-50.1)
[2019-03-20] MEDS: *HR* OxyCODONE/APAP 7.5/325 TABLET PO PRN ×3 (03:51→12:12)
[2019-03-20] MEDS: Heparin 25,000 UNIT/250 ML D5W 25,000 UNIT/250 ML IV.SOLN IVC SCH (03:52)
[2019-03-20 05:55] LABS: Hematocrit 27.5 % (37.5-50.1); Hemoglobin 9.3 g/dL (12.9-16.9); Mean Corpuscular HGB Conc 33.8 g/dL (31.6-35.5); Mean Corpuscular Hemoglobin 32.7 pg (28.0-33.3); Mean Corpuscular Volume 96.8 fL (83.0-100.0); Mean Platelet Volume 10.6 fL (9.4-12.4); Platelet Count 147 K/mcL (140-400); Red Blood Count 2.84 M/mcL (4.19-5.50); Red Cell Distribution Width 17.9 % (11.5-14.5); White Blood Count 6.7 K/mcL (4.3-11.1)
[2019-03-20 06:17] LABS: Calcium 9.1 mg/dL (8.6-10.3); Potassium 4.3 mEq/L (3.5-5.1)
[2019-03-20] MEDS: FLUoxetine 20 MG CAPSULE PO SCH (08:33)
[2019-03-20] MEDS: Cholecalciferol (D-3) 1,000 UNIT (25MCG) TABLET PO SCH (08:33)
[2019-03-20] MEDS: Pregabalin 25 MG CAPSULE PO SCH (08:34)
[2019-03-20 10:36] VITALS: BP 142/71
[2019-03-20] MEDS ORDERED: *HR* Warfarin 3 MG TABLET PO ONE (18:00)
[2019-03-24 08:43] LABS: Alpha 2 Globulin (PEP) 0.98 g/dL (0.48-1.05); Beta Globulin (PEP) 0.86 g/dL (0.48-1.10)
[2019-03-24 09:36] LABS: IFE Reflexed IFE Done; Immunoglobulin A 384 mg/dL (68-408); Immunoglobulin G 1080 mg/dL (768-1632); Immunoglobulin M 64 mg/dL (35-263)
== END 2019-03-20 13:40 | disposition home or self-care (01) ==
LOC: EMEROOARM 17:46 → 2ANU 17:46 → SUATTDRO 19:50 → 2ANU 21:05
PROVIDERS: ADMIT Internal Medicine; ATTEND Internal Medicine

== ENCOUNTER 2019-05-19 15:44 | Observation (INO) ==
[2019-05-19 16:25] LABS: Hematocrit 30.9 % (37.5-50.1); Hemoglobin 9.7 g/dL (12.9-16.9); Mean Corpuscular HGB Conc 31.4 g/dL (31.6-35.5); Mean Corpuscular Hemoglobin 33.7 pg (28.0-33.3); Mean Corpuscular Volume 107.3 fL (83.0-100.0); Mean Platelet Volume 10.3 fL (9.4-12.4); Platelet Count 138 K/mcL (140-400); Red Blood Count 2.88 M/mcL (4.19-5.50); Red Cell Distribution Width 18.2 % (11.5-14.5); White Blood Count 5.5 K/mcL (4.3-11.1)
[2019-05-19 16:30] LABS: INR 3.1; Prothrombin Time 35.8 Seconds (9.4-12.1)
[2019-05-19 16:43] LABS: Alanine Aminotransferase 11 Units/L (7-52); Albumin/Globulin Ratio 1.3 (1.1-2.2); Alkaline Phosphatase 95 Units/L (34-104); Aspartate Amino Transferase 16 Units/L (13-39); Bilirubin,Direct 0.1 mg/dL (0.0-0.2); Bilirubin,Indirect 0.5 mg/dL (0.0-1.0); Bilirubin,Total 0.6 mg/dL (0.3-1.0); Globulin 3.1 g/dL (2.4-3.5); Total Protein 7.1 g/dL (6.4-8.9)
[2019-05-19 16:44] LABS: Troponin I 0.03 ng/mL (< 0.04)
[2019-05-19 17:34] LABS: BUN/Creatinine Ratio 4 (6-26); Blood Urea Nitrogen 16 mg/dL (8-23); Calcium 8.9 mg/dL (8.6-10.3); Carbon Dioxide 28 mEq/L (23-29); Chloride 98 mEq/L (98-107); Glucose 115 mg/dL (70-105); Osmolality,Calculated 288 (280-300); Potassium 3.2 mEq/L (3.5-5.1); Sodium 138 mEq/L (136-145); eGFR For African Americans 17 (> 60); eGFR For Non-African Americans 14 (> 60)
[2019-05-19] MEDS ORDERED: Acetaminophen 325 MG TABLET PO PRN (17:40)
[2019-05-19] MEDS ORDERED: Naloxone 0.4 MG/ML INJ IVP PRN (17:40)
[2019-05-19 18:01] LABS: Ethanol < 10 mg/dL (Less than 10)
[2019-05-20 01:32] LABS: Basophils % 0.3 %; Eosinophils % 1.1 %; Hematocrit 26.9 % (37.5-50.1); Hemoglobin 8.6 g/dL (12.9-16.9); Immature Granulocytes % 0.5 % (0-4); Lymphocytes # 0.4 K/mcL (0.6-4.6); Lymphocytes % 11.8 %; Mean Corpuscular Hemoglobin 34.3 pg (28.0-33.3); Mean Corpuscular Volume 107.2 fL (83.0-100.0); Mean Platelet Volume 10.3 fL (9.4-12.4); Monocytes # 0.3 K/mcL (0.0-1.3); Platelet Count 107 K/mcL (140-400); Red Blood Count 2.51 M/mcL (4.19-5.50); Red Cell Distribution Width 18.6 % (11.5-14.5); Segmented Neutrophils % 79.3 %; White Blood Count 3.7 K/mcL (4.3-11.1)
[2019-05-20 01:52] LABS: Albumin 3.6 g/dL (3.5-5.7); Albumin/Globulin Ratio 1.4 (1.1-2.2); Bilirubin,Total 0.5 mg/dL (0.3-1.0); Calcium 8.7 mg/dL (8.6-10.3); Chol/HDL Ratio 2.2 (0-4.9); Globulin 2.6 g/dL (2.4-3.5); Potassium 3.7 mEq/L (3.5-5.1); Total Protein 6.2 g/dL (6.4-8.9)
[2019-05-20 01:53] LABS: Magnesium 1.7 mg/dL (1.6-2.6)
[2019-05-20 02:05] LABS: Thyroid Stimulating Hormone 2.784 mcIU/mL (0.340-5.600)
[2019-05-20] MEDS: *HR* HYDROcodone/Acet 5/325 mg TABLET PO PRN ×2 (02:07→20:36)
[2019-05-20 07:00] LABS: Estimated Average Glucose 100 mg/dl
[2019-05-20 07:11] LABS: Hepatitis B Surface Antibody < 3.10 mIU/mL
[2019-05-20 07:22] LABS: Hepatitis B Surface Antigen Nonreactive (Nonreactive)
[2019-05-20] MEDS ORDERED: Folic Acid 1 MG TABLET PO SCH (09:00)
[2019-05-20] MEDS ORDERED: FLUoxetine 20 MG CAPSULE PO SCH (09:00)
[2019-05-20] MEDS: Cyanocobalamin (B-12) 1,000 MCG TABLET PO SCH (09:17)
[2019-05-20] MEDS: Cholecalciferol (D-3) 1,000 UNIT (25MCG) TABLET PO SCH (09:18)
[2019-05-21] MEDS: *HR* HYDROcodone/Acet 5/325 mg TABLET PO PRN (02:41)
[2019-05-21 02:43] LABS: Hematocrit 26.8 % (37.5-50.1); Hemoglobin 8.7 g/dL (12.9-16.9); Mean Corpuscular HGB Conc 32.5 g/dL (31.6-35.5); Mean Corpuscular Hemoglobin 34.7 pg (28.0-33.3); Mean Corpuscular Volume 106.8 fL (83.0-100.0); Mean Platelet Volume 11.1 fL (9.4-12.4); Platelet Count 127 K/mcL (140-400); Red Blood Count 2.51 M/mcL (4.19-5.50); Red Cell Distribution Width 17.8 % (11.5-14.5); White Blood Count 3.9 K/mcL (4.3-11.1)
[2019-05-21 02:48] LABS: INR 2.5; Prothrombin Time 28.5 Seconds (9.4-12.1)
[2019-05-21 03:04] LABS: Calcium 8.3 mg/dL (8.6-10.3); Potassium 3.9 mEq/L (3.5-5.1)
[2019-05-21 05:08] LABS: Bilirubin,Urine Negative (Negative); Blood,Urine Negative (Negative); Clarity,Urine Clear (Clear); Color,Urine Yellow (Yellow); Glucose,Urine (UA) Normal (Normal); Ketones,Urine Negative (Negative); Leukocyte Esterase,Urine Negative (Negative); Nitrite,Urine Negative (Negative); PH,Urine 7.5 pH Units (5.0-8.0); Protein,Urine 30 mg/dL (Neg-Trace); Specific Gravity,Urine 1.011 (1.010-1.025); Urobilinogen,Urine Normal (Normal)
[2019-05-21 05:11] LABS: Bacteria,Urine None Seen per hpf (None-Few); Hyaline Casts,Urine None Seen per lpf (None-Few); RBC,Urine 0-3 per hpf (0-3); Squamous Epithelial Cell,Urine Many per lpf (None-Few); WBC,Urine 0-3 per hpf (0-3)
[2019-05-21 05:18] LABS: Amphetamine Screen,Urine Negative ng/mL (Cutoff=1000); Barbiturate Screen,Urine Negative ng/mL (Cutoff=200); Benzodiazepines Screen,Urine Negative ng/mL (Cutoff=200); Cannabinoid Screen,Urine Negative ng/mL (Cutoff = 50); Cocaine Screen,Urine Negative ng/mL (Cutoff= 300); Opiate Screen,Urine Negative ng/mL (Cutoff=300); Phencyclidine Screen,Urine Negative ng/mL (Cutoff=25)
[2019-05-21] MEDS: Cholecalciferol (D-3) 1,000 UNIT (25MCG) TABLET PO SCH (08:12)
[2019-05-21] MEDS: Cyanocobalamin (B-12) 1,000 MCG TABLET PO SCH (08:12)
[2019-05-21] MEDS ORDERED: 0.9 % Sodium Chloride 250 ML IVC PRN (08:22)
[2019-05-21] MEDS ORDERED: *HR* Heparin 10,000 UNIT/10 ML VIAL IV PRN (08:22)
[2019-05-21] MEDS ORDERED: 0.9 % Sodium Chloride 1,000 ML PRIME SCH (08:30)
[2019-05-21] MEDS ORDERED: FLUoxetine HCl Oral Soln 20 MG/5 ML UDC PO SCH (09:00)
[2019-05-21 14:03] VITALS: BP 118/75
== END 2019-05-21 16:19 | disposition home health service (06) ==
LOC: 2ANU 15:44 → EMEROOARM 15:44 → SUATTDRO 17:37 → 2ANU 18:34
PROVIDERS: ADMIT Internal Medicine; ATTEND Internal Medicine

== ENCOUNTER 2020-01-17 21:38 | Observation (INO) ==
[2020-01-17 22:31] LABS: Basophils % 0.2 %; Immature Granulocytes % 0.3 % (0-4); Mean Corpuscular Volume 109.3 fL (83.0-100.0); Mean Platelet Volume 11.6 fL (9.4-12.4); Red Cell Distribution Width 14.2 % (11.5-14.5)
[2020-01-17 22:33] LABS: Eosinophils % 0.5 %; Hematocrit 35.3 % (37.5-50.1); Hemoglobin 11.6 g/dL (12.9-16.9); Lymphocytes # 0.4 K/mcL (0.6-4.6); Mean Corpuscular HGB Conc 32.9 g/dL (31.6-35.5); Mean Corpuscular Hemoglobin 35.9 pg (28.0-33.3); Monocytes # 0.5 K/mcL (0.0-1.3); Monocytes % 7.8 %; Red Blood Count 3.23 M/mcL (4.19-5.50); Segmented Neutrophils % 84.2 %; White Blood Count 6.1 K/mcL (4.3-11.1)
[2020-01-17 22:40] LABS: Neutrophils # 5.1 K/mcL (1.6-8.9); Platelet Count 94 K/mcL (140-400)
[2020-01-17 22:54] LABS: Albumin 4.1 g/dL (3.5-5.7); Albumin/Globulin Ratio 1.3 (1.1-2.2); Bilirubin,Total 0.4 mg/dL (0.3-1.0); Calcium 9.4 mg/dL (8.6-10.3); Globulin 3.2 g/dL (2.4-3.5); Potassium 5.7 mEq/L (3.5-5.1); Total Protein 7.3 g/dL (6.4-8.9)
[2020-01-17 23:27] LABS: INR 1.5; Prothrombin Time 17.4 Seconds (9.4-12.1)
[2020-01-17 23:29] LABS: Activated Partial Thrombo Time 31.1 Seconds (26.0-36.0)
[2020-01-17] MEDS ORDERED: Piperacillin/Tazobactam 3.375 GM in Water for inj. (sterile) 20 ML IVP ONE (23:55)
[2020-01-18] MEDS ORDERED: Acetaminophen 325 MG TABLET PO PRN (00:26)
[2020-01-18] MEDS ORDERED: Ondansetron 4 MG/2 ML VIAL IVP PRN (00:26)
[2020-01-18] MEDS ORDERED: Naloxone 0.4 MG/ML INJ IVP PRN (00:26)
[2020-01-18] MEDS ORDERED: allopurinoL 100 MG TABLET PO PRN (00:43)
[2020-01-18] MEDS: Apixaban 5 MG TABLET PO SCH ×3 (03:03→20:54)
[2020-01-18] MEDS: *HR* HYDROcodone/Acet 5/325 mg TABLET PO PRN ×2 (03:58→21:04)
[2020-01-18] MEDS: hydrOXYzine pamoate 25 MG CAPSULE PO SCH ×3 (05:04→16:54)
[2020-01-18 06:35] LABS: Basophils % 0.2 %; Immature Granulocytes % 0.3 % (0-4); Monocytes % 8.6 %
[2020-01-18 06:37] LABS: Eosinophils # 0.1 K/mcL (0.0-0.6); Eosinophils % 1.5 %; Hematocrit 33.7 % (37.5-50.1); Lymphocytes # 0.5 K/mcL (0.6-4.6); Lymphocytes % 8.4 %; Mean Corpuscular HGB Conc 32.6 g/dL (31.6-35.5); Mean Corpuscular Hemoglobin 35.8 pg (28.0-33.3); Mean Corpuscular Volume 109.8 fL (83.0-100.0); Mean Platelet Volume 11.8 fL (9.4-12.4); Monocytes # 0.5 K/mcL (0.0-1.3); Neutrophils # 4.8 K/mcL (1.6-8.9); Nucleated Red Blood Cells 0.3 /100 WBC (0); Red Blood Count 3.07 M/mcL (4.19-5.50); White Blood Count 5.9 K/mcL (4.3-11.1)
[2020-01-18 06:52] LABS: Calcium 9.5 mg/dL (8.6-10.3); Potassium 5.5 mEq/L (3.5-5.1)
[2020-01-18 06:54] LABS: Platelet Count 87 K/mcL (140-400)
[2020-01-18 06:55] LABS: Platelet Estimate Decreased (Normal)
[2020-01-18 07:16] LABS: Hepatitis B Surface Antibody < 3.10 mIU/mL
[2020-01-18 07:26] LABS: Hepatitis B Surface Antigen Nonreactive (Nonreactive)
[2020-01-18] MEDS ORDERED: 0.9 % Sodium Chloride 250 ML IVC PRN (07:29)
[2020-01-18] MEDS ORDERED: 0.9 % Sodium Chloride 1,000 ML PRIME SCH (07:30)
[2020-01-18] MEDS: Folic Acid 1 MG TABLET PO SCH (08:30)
[2020-01-18] MEDS: Vitamin B Complex/Vit C/Vit E 1 EACH TABLET PO SCH (08:30)
[2020-01-18] MEDS: FLUoxetine 20 MG CAPSULE PO SCH (08:30)
[2020-01-18] MEDS: Pregabalin 25 MG CAPSULE PO SCH ×2 (08:30→20:54)
[2020-01-18] MEDS: Cyanocobalamin (B-12) 1,000 MCG TABLET PO SCH (08:30)
[2020-01-18] MEDS: *HR* OxyCODONE Immed Rel 5 MG TABLET PO PRN ×2 (08:30→16:57)
[2020-01-18] MEDS: SODIUM ZIRCONIUM CYCLOSILICATE 5 GM POWD.PACK PO SCH (12:05)
[2020-01-18] MEDS: Piperacillin/Tazobactam 3.375 GM in 0.9 % Sodium Chloride Mini Bag 100 ML IVPB SCH (12:06)
[2020-01-19] MEDS: hydrOXYzine pamoate 25 MG CAPSULE PO SCH ×3 (00:55→12:02)
[2020-01-19] MEDS: Piperacillin/Tazobactam 3.375 GM in 0.9 % Sodium Chloride Mini Bag 100 ML IVPB SCH (00:55)
[2020-01-19 04:39] LABS: Hematocrit 36.2 % (37.5-50.1); Hemoglobin 11.8 g/dL (12.9-16.9); Mean Corpuscular HGB Conc 32.6 g/dL (31.6-35.5); Mean Corpuscular Hemoglobin 36.3 pg (28.0-33.3); Mean Corpuscular Volume 111.4 fL (83.0-100.0); Mean Platelet Volume 11.9 fL (9.4-12.4); Platelet Count 102 K/mcL (140-400); Red Blood Count 3.25 M/mcL (4.19-5.50); White Blood Count 6.4 K/mcL (4.3-11.1)
[2020-01-19 04:57] LABS: Calcium 9.5 mg/dL (8.6-10.3); Potassium 5.1 mEq/L (3.5-5.1)
[2020-01-19] MEDS: Vitamin B Complex/Vit C/Vit E 1 EACH TABLET PO SCH (08:49)
[2020-01-19] MEDS: Folic Acid 1 MG TABLET PO SCH (08:49)
[2020-01-19] MEDS: SODIUM ZIRCONIUM CYCLOSILICATE 5 GM POWD.PACK PO SCH (08:49)
[2020-01-19] MEDS: Pregabalin 25 MG CAPSULE PO SCH (08:49)
[2020-01-19] MEDS: Cyanocobalamin (B-12) 1,000 MCG TABLET PO SCH (08:49)
[2020-01-19] MEDS: Apixaban 5 MG TABLET PO SCH (08:49)
[2020-01-19] MEDS: FLUoxetine 20 MG CAPSULE PO SCH (08:49)
[2020-01-19 12:02] VITALS: BP 110/66
[2020-01-19] MEDS ORDERED: Doxycycline 100 MG CAPSULE PO SCH (14:00)
[2020-01-19] MEDS ORDERED: cephALEXin 500 MG CAPSULE PO SCH ×2 (14:00)
== END 2020-01-19 12:36 | disposition home or self-care (01) ==
LOC: 2ANU 21:38 → EMEROOARM 21:38 → 2ANU 01-18 00:12 → SUATTDRO 01-18 00:15
PROVIDERS: ADMIT Student in an Organized Health Care Education/Training Program; ATTEND Internal Medicine